=== PATIENT | female | born 1995 | race Caucasian/White ===

== ENCOUNTER → 2016-05-09 | Outpatient (CLI) | payer BC ==
[~2016-05-09] MED LIST: GADAVIST IV PRN; LEVOTAB6 PO; MULT-506 PO; NORT25CA PO; RBX500 PO; Vitamin D PO; ZOLMITRIPTAN PO; loratadine PO
--- NOTE | 2016-05-09 18:08 | DIAGNOSTIC IMAGING REPORT ---
MRI OF THE BRAIN WITH AND WITHOUT CONTRAST MULTIPLE SCLEROSIS PROTOCOL CLINICAL HISTORY: Left frontal lobe mass. Strong family history of multiple sclerosis. COMPARISON STUDY: MRI of the brain January 25, 2015 and October 15, 2015. TECHNIQUE: Utilizing a 1.5 Estephania magnet, multiplanar, multi echo imaging of the brain was performed pre and postcontrast administration according to the multiple sclerosis protocol. Injection of 5.5 cc of Gadavist IV was uneventful. FINDINGS: There are no areas of restricted diffusion. No acute intracranial hemorrhage or midline shift is present. Ventricular system is normal. Basilar cisterns are patent. There are no extra-axial collections. Flow-voids for the major intracranial vessels are present. Note is made of a 3 x 1.6 x 2.5 cm subcortical white matter T2 hyperintense focus within the anterior left frontal lobe which is unchanged since MRI of January 25, 2015. This demonstrates no enhancement. Mild associated cortical thickening is noted. No additional areas of signal abnormality are identified within the brain. There is no abnormal enhancement within the brain. Calvarial signal is maintained. Orbits and sinuses are unremarkable. IMPRESSION: 1. No change in the left frontal lobe 3 cm subcortical white matter T2 hyperintense focus with associated cortical thickening since MRI of January 25, 2015. 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 However, a low-grade neoplasm would be difficult to exclude and continued imaging follow-up to ensure stability is recommended. The appearance is not typical for demyelinating process. 2. Otherwise, normal MRI of the brain. Electronically signed by: Clark Kang M.D. 05/09/2016 6:06 PM Dictated Date/Time: 05/09/2016 5:37 PM
== END | disposition home or self-care (01) ==
LOC: C.MRI 16:40
PROVIDERS: ATTEND Hospitalist
DX: G93.9 Disorder of brain, unspecified (principal)

== ENCOUNTER → 2017-05-01 | Outpatient (CLI) | payer BC ==
[~2017-05-01] MED LIST changes: -GADAVIST IV PRN
== END | disposition home or self-care (01) ==
LOC: C.LABSPEC 17:40
PROVIDERS: ATTEND Physician Assistant
DX: J35.1 Hypertrophy of tonsils (principal)

== ENCOUNTER → 2017-05-29 | Outpatient (CLI) | payer BC | END | disposition home or self-care (01) | LOC: C.LABPBG 09:18 | PROVIDERS: ATTEND Physician Assistant | DX: J35.1 Hypertrophy of tonsils (principal); R53.83 Other fatigue ==

== ENCOUNTER 2017-06-08 15:16 | Emergency (ER) | payer BC ==
[~2017-06-08] VITALS: Ht 165.1 cm; Wt 57.3 kg
[2017-06-08 15:36] VITALS: TEMP 37.1; Ht 165.1 cm; Wt 57.3 kg
[2017-06-08] MEDS ORDERED: LORAZEPAM 2 MG/ML 1 ML VIAL IV ONE (17:45)
[2017-06-08] MEDS ORDERED: SODIUM CHLORIDE 0.9% 1000ML 1,000 ML IV ONE ×2 (17:45→18:45)
[2017-06-08 17:57] LABS: BASO % 0.1 %; BASO ABS # 0.01 K/uL (0-0.2); EOS % 0.1 %; EOS ABS # 0.01 K/uL (0-0.5); HEMATOCRIT 40.3 % (37-47); HEMOGLOBIN 13.8 g/dL (12.0-16.0); IG# 0.01 K/uL (0.00-0.02); LYMPH % 29.4 %; MEAN CELL VOLUME 90.2 fL (80-100); MEAN CORPUSCULAR HEMOGLOBIN 30.9 pg (25-34); MEAN CORPUSCULAR HGB CONC 34.2 g/dl (32-36); MEAN PLATELET VOLUME 8.9 fL (7.4-10.4); MONO % 11.5 %; MONO ABS # 0.78 K/uL (0.11-0.59); NEUT % 58.8 %; PLATELET COUNT 280 K/uL (130-400); RED CELL DISTRIBUTION WIDTH CV 12.9 % (11.5-14.5); RED CELL DISTRIBUTION WIDTH SD 42.4 fL (36.4-46.3); WHITE BLOOD COUNT 6.81 K/uL (4.8-10.8)
[2017-06-08 18:05] LABS: INR 1.1 (0.9-1.1); PTT PATIENT 26.4 SECONDS (21.0-31.0)
[2017-06-08 18:20] LABS: ALBUMIN 4.2 gm/dl (3.4-5.0); ALT/SGPT 27 U/L (12-78); BLOOD UREA NITROGEN 8 mg/dl (7-18); CALCIUM 9.1 mg/dl (8.5-10.1); CARBON DIOXIDE 26 mmol/L (21-32); CREATININE 0.79 mg/dl (0.60-1.20); GLUCOSE 75 mg/dl (70-99); LIPASE 97 U/L (73-393); POTASSIUM 3.4 mmol/L (3.5-5.1); SODIUM 138 mmol/L (136-145)
[2017-06-08 18:31] LABS: ALKALINE PHOSPHATASE 44 U/L (45-117); AST/SGOT 12 U/L (15-37); CKMB < 0.5 ng/ml (0.5-3.6); TOTAL PROTEIN 8.3 gm/dl (6.4-8.2)
[2017-06-08 18:39] LABS: MONOSPOT NEG (NEG)
[2017-06-08] MEDS ORDERED: GADAVIST IV PRN (19:15)
--- NOTE | 2017-06-08 19:20 | DIAGNOSTIC IMAGING REPORT ---
MRI OF THE BRAIN WITHOUT AND WITH IV CONTRAST CLINICAL HISTORY: Weakness, fatigue. History of left frontal lobe mass. COMPARISON STUDY: 05/09/2016 , January 2015 TECHNIQUE: MRI of the brain was performed from the vertex to the skull base utilizing various T1 and T2 weighted sequences. Following the IV administration of 5.5 mL of Gadavist contrast, additional enhanced images were obtained. FINDINGS: Sagittal T1, axial diffusion, proton density and T2 weighted axial, coronal FLAIR, and pre and post axial T1-weighted images were acquired. These were supplemented with post gadolinium coronal T1 weighted images. There is a stable 2.6 cm left frontal subcortical focus of increased T2 signal. Again there is no associated enhancement. There is equivocal associated mild cortical thickening. 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 A low-grade neoplasm can again not be excluded with certainty. Axial diffusion-weighted images reveal no evidence of acute or subacute infarction. There is no evidence of ventricular dilatation. Proton density T2-weighted and FLAIR images reveal the left frontal lesion has previous described. There are no additional foci of abnormal signal. There are no abnormal flow voids. There is no evidence of pathologic enhancement. IMPRESSION: 1. No acute intracranial findings 2. No evidence of acute or subacute infarction 3. Stable 2.6 cm left frontal subcortical white matter lesion with equivocal associated cortical thickening. There is no pathological enhancement. 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 Electronically signed by: Johnny Stewart M.D. 06/08/2017 7:19 PM Dictated Date/Time: 06/08/2017 7:12 PM
[2017-06-08] MEDS ORDERED: CEFTRIAXONE SOD INJ 1 GM ADDVIAL IV STA (19:23)
[2017-06-08] MEDS ORDERED: CEFD300C2 PO (20:13)
[2017-06-08 20:32] VITALS: BP 119/70; PULSE 83; O2SAT 97
--- NOTE | 2017-06-08 20:42 | EMERGENCY ROOM VISIT NOTE ---
History First contact with patient: 17:02 Chief Complaint: ILLNESS Stated Complaint: HAD STREP THROAT, STOMACH ACHE, HEADACHE, FEVER History of Present Illness The patient is a 21 year old female who presents to the Emergency Room with multiple complaints including sore throat, fevers, chills, headache, stomachaches, body aches, and difficulty sleeping. The patient states her symptoms have been off and on for the past 2 or 3 months, and she has been diagnosed with strep pharyngitis twice in that interval. She is allergic to penicillins and was treated the first time with an unknown antibiotic. The patient tested positive again a second time, but did not merchandise pickup/receiving associate the antibiotic from the pharmacy because she believes it was a penicillin and she is allergic to penicillins. The patient states that her symptoms have worsened over the past 3 or 4 days, prompting her presentation today. She does report a history of a stable brain mass that she follows with her she had before. This was last imaged about 1 year ago. The patient denies chance of as she is on control. She rates her overall discomfort at 8/10. She does not report numbness or paresthesias. Review of Systems More than 10 systems were reviewed and otherwise negative with the exception of history of present illness. Past Medical/Surgical History No pertinent surgical history. Reported history of benign brain mass. Family History No pertinent family history Social History Smoking Status: Never Smoker Marital Status: Occupation Status: employed Current/Historical Medications Scheduled Cefdinir (Omnicef), 300 MG PO Q12H Levonorgestrel-Ethinyl Estradi (Seasonique), 1 TAB PO DAILY Physical Exam Vital Signs Date Time Temp Pulse Resp B/P (MAP) Pulse Ox O2 Delivery O2 Flow Rate FiO2 06/08/17 20:32 83 16 119/70 97 06/08/17 19:54 85 16 119/65 99 Room Air 06/08/17 15:36 37.1 122 18 137/83 98 Room Air Physical Exam VITALS: Vitals are noted on the nurse's note and reviewed by myself. Vital signs stable. GENERAL: Well-developed, well-nourished, white female, who is in no acute distress and resting comfortably. Patient is cooperative with the examination. HEAD: Normocephalic atraumatic. EARS: External ear normal. External auditory canals clear, tympanic membranes pearly jackson without erythema or effusion bilaterally. EYES: Pupils equal round and reactive to light and accommodation. Conjunctivae without injection, sclerae without icterus. Extraocular movements intact. NOSE: Patent, turbinates without inflammation or discharge. MOUTH: Mucous membranes moist. Tonsils are 3+ enlarged but non-exudative or erythematous. Pharynx without erythema, blood, or exudate. Uvula midline. Airway patent. NECK: Supple without nuchal rigidity. No lymphadenopathy. No thyromegaly. Cervical spine is nontender. HEART: Regular rate and rhythm without murmurs gallops or rubs. LUNGS: Clear to auscultation bilaterally without wheezes, rales or rhonchi. No retractions or accessory muscle use. ABDOMEN: Positive normal bowel sounds x 4. Soft, nontender, without masses or organomegaly. No guarding or rebound tenderness. MUSCULOSKELETAL: No muscle atrophy, erythema, or edema noted. Full range of motion in all extremities. No tenderness to palpation. Normal gait. Strength 5/5 throughout. NEURO: Patient was alert and oriented to person place and time. CN II through XII grossly intact. No focal neurological deficits. Deep tendon reflexes 2+ throughout. Medical Decision & Procedures ER Provider Diagnostic Interpretation: MRI OF THE BRAIN WITHOUT AND WITH IV CONTRAST CLINICAL HISTORY: Weakness, fatigue. History of left frontal lobe mass. COMPARISON STUDY: 05/09/2016 , January 2015 TECHNIQUE: MRI of the brain was performed from the vertex to the skull base utilizing various T1 and T2 weighted sequences. Following the IV administration of 5.5 mL of Gadavist contrast, additional enhanced images were obtained. FINDINGS: Sagittal T1, axial diffusion, proton density and T2 weighted axial, coronal FLAIR, and pre and post axial T1-weighted images were acquired. These were supplemented with post gadolinium coronal T1 weighted images. There is a stable 2.6 cm left frontal subcortical focus of increased T2 signal. Again there is no associated enhancement. There is equivocal associated mild cortical thickening. 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 A low-grade neoplasm can again not be excluded with certainty. Axial diffusion-weighted images reveal no evidence of acute or subacute infarction. There is no evidence of ventricular dilatation. Proton density T2-weighted and FLAIR images reveal the left frontal lesion has previous described. There are no additional foci of abnormal signal. There are no abnormal flow voids. There is no evidence of pathologic enhancement. IMPRESSION: 1. No acute intracranial findings 2. No evidence of acute or subacute infarction 3. Stable 2.6 cm left frontal subcortical white matter lesion with equivocal associated cortical thickening. There is no pathological enhancement. 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 Laboratory Results 06/08/17 17:45 Red Blood Count 4.47, Mean Corpuscular Volume 90.2, Mean Corpuscular Hemoglobin 30.9, Mean Corpuscular Hemoglobin Concent 34.2, Mean Platelet Volume 8.9, Neutrophils (%) (Auto) 58.8, Lymphocytes (%) (Auto) 29.4, Monocytes (%) (Auto) 11.5, Eosinophils (%) (Auto) 0.1, Basophils (%) (Auto) 0.1, Neutrophils # (Auto ) 4.00, Lymphocytes # (Auto) 2.00, Monocytes # (Auto) 0.78, Eosinophils # (Auto ) 0.01, Basophils # (Auto) 0.01 06/08/17 17:45 Test 06/08/17 17:45 06/08/17 17:55 White Blood Count 6.81 K/uL (4.8-10.8) Red Blood Count 4.47 M/uL (4.2-5.4) Hemoglobin 13.8 g/dL (12.0-16.0) Hematocrit 40.3 % (37-47) Mean Corpuscular Volume 90.2 fL (80-100) Mean Corpuscular Hemoglobin 30.9 pg (25-34) Mean Corpuscular Hemoglobin Concent 34.2 g/dl (32-36) Platelet Count 280 K/uL (130-400) Mean Platelet Volume 8.9 fL (7.4-10.4) Neutrophils (%) (Auto) 58.8 % Lymphocytes (%) (Auto) 29.4 % Monocytes (%) (Auto) 11.5 % Eosinophils (%) (Auto) 0.1 % Basophils (%) (Auto) 0.1 % Neutrophils # (Auto) 4.00 K/uL (1.4-6.5) Lymphocytes # (Auto) 2.00 K/uL (1.2-3.4) Monocytes # (Auto) 0.78 K/uL (0.11-0.59) Eosinophils # (Auto) 0.01 K/uL (0-0.5) Basophils # (Auto) 0.01 K/uL (0-0.2) RDW Standard Deviation 42.4 fL (36.4-46.3) RDW Coefficient of Variation 12.9 % (11.5-14.5) Immature Granulocyte % (Auto) 0.1 % Immature Granulocyte # (Auto) 0.01 K/uL (0.00-0.02) Prothrombin Time 11.1 SECONDS (9.0-12.0) Prothromb Time International Ratio 1.1 (0.9-1.1) Activated Partial Thromboplast Time 26.4 SECONDS (21.0-31.0) Partial Thromboplastin Ratio 1.0 Anion Gap 7.0 mmol/L (3-11) Est Creatinine Clear Calc Drug Dose 100.5 ml/min Estimated GFR () 123.2 Estimated GFR (Non- 106.3 BUN/Creatinine Ratio 9.7 (10-20) Calcium Level 9.1 mg/dl (8.5-10.1) Magnesium Level 2.1 mg/dl (1.8-2.4) Total Bilirubin 0.7 mg/dl (0.2-1) Aspartate Amino Transf (AST/SGOT) 12 U/L (15-37) Alanine Aminotransferase (ALT/SGPT) 27 U/L (12-78) Alkaline Phosphatase 44 U/L (45-117) Total Creatine Kinase 45 U/L (26-192) Creatine Kinase MB < 0.5 ng/ml (0.5-3.6) Creatine Kinase MB Ratio (0-3.0) Total Protein 8.3 gm/dl (6.4-8.2) Albumin 4.2 gm/dl (3.4-5.0) Globulin 4.1 gm/dl (2.5-4.0) Albumin/Globulin Ratio 1.0 (0.9-2) Lipase 97 U/L (73-393) Thyroid Stimulating Hormone (TSH) 2.240 uIu/ml (0.300-4.500) Lyme Disease IgG Antibody NEG (NEG) Lyme Disease IgM Antibody NEG (NEG) Monoscreen NEG (NEG) Anti-Streptolysin O Antibody Screen POS IU/ml (<200 IU) Anti-Streptolysin O Antibody Titer 200 IU/ml (<200 IU) Urine Color DK YELLOW Urine Appearance CLOUDY (CLEAR) Urine pH 6.0 (4.5-7.5) Urine Specific [place] 1.031 (1.000-1.030) Urine Protein TRACE (NEG) Urine Glucose (UA) NEG (NEG) Urine Ketones 3+ (NEG) Urine Occult Blood NEG (NEG) Urine Nitrite NEG (NEG) Urine Bilirubin NEG (NEG) Urine Urobilinogen NEG (NEG) Urine Leukocyte Esterase SMALL (NEG) Urine WBC (Auto) 10-30 /hpf (0-5) Urine RBC (Auto) 0-4 /hpf (0-4) Urine Hyaline Casts (Auto) 10-30 /lpf (0-5) Urine Epithelial Cells (Auto) >30 /lpf (0-5) Urine Bacteria (Auto) NEG (NEG) Urine Test NEG (NEG) Medications Administered Medications (Trade) Dose Ordered Sig/Grazyna Route Start Time Stop Time Status Last Admin Dose Admin Sodium Chloride 1,000 ml @ 999 mls/hr Q1H1M ONCE IV 06/08/17 17:45 06/08/17 18:45 DC 06/08/17 17:50 999 MLS/HR Lorazepam (Ativan Inj) 1 mg ONE ONCE IV 06/08/17 17:45 06/08/17 17:46 DC 06/08/17 17:53 1 MG Sodium Chloride 1,000 ml @ 999 mls/hr Q1H1M ONCE IV 06/08/17 18:45 06/08/17 19:45 DC 06/08/17 19:52 999 MLS/HR Ceftriaxone Sodium (Rocephin Inj) 1 gm NOW STAT IV 06/08/17 19:23 06/08/17 19:24 DC 06/08/17 19:52 1 GM ED Course Physical exam and history were performed. Nursing notes, EMR, and Medication List were personally reviewed. Patient appears to have several symptoms bring her to the ER today. The most concerning are that she has had a fever with persistent sore throat symptoms. She is also complaining of intermittent headache symptoms and has a history of a brain mass. The patient appears well on examination without obvious neurologic deficit. Her tonsils are enlarged but not erythematous, and her airway is patent. IV access was established and labs were obtained. The patient was hydrated with normal saline. I discussed the case with my attending physician, and because of the patient's history and symptoms we did elect to perform an MRI of the brain. The patient's blood work is as above and was reviewed. She does not have a significantly elevated white blood cell count, gross anemia, bandemia, or significant electrolyte imbalance. Lipase and transaminases are not diagnostic. Lyme and mono were both negative. TSH shows euthyroid state. The patient is not . She may be slightly dehydrated based on her urine and was given an additional liter of saline through the IV. Her ASO titer is elevated. MRI reading is as above and was reviewed by myself and radiology. She does have a white matter lesion, which appears stable, and without other additional findings this is felt to be noncontributory to her symptoms today. I had a lengthy discussion with the patient regarding her findings. Because she has a positive ASO titer I will give her a dose of Rocephin here in the department. Because of her penicillin allergy I will give her a course of Omnicef, which should clear any remaining strep exposure. This is felt to be the likely cause of her symptoms, and should help her improve over the next few days. I did request the patient follow with her primary care physician in the next few days for recheck. She was certainly invited back to the ER with any new, worsening, or concerning symptoms. The patient was pleased with this and was discharged home under the care of her male jewelry coater who is acting as a taxicab driver. The chart was completed utilizing [employer] Voice Recognition Software. Grammatical errors, random word insertions, pronoun errors, and incomplete sentences are an occasional consequence of this system due to software limitations, ambient noise, and hardware issues. Any formal questions or concerns about the content, text, or information contained within the body of this dictation should be directly addressed to the provider for clarification. . Medical Decision Differential diagnosis: Etiologies such as cancer, mono, viral syndrome, tonsillitis, streptococcal pharyngitis, mononucleosis, peritonsillar abscess, retropharyngeal abscess, otitis, pneumonia, influenza, as well as others were entertained. Impression Primary Impression: Sore throat Additional Impression: Elevated anti-streptolysin O antibodies Departure Information Dispostion Home / Self-Care Condition GOOD Prescriptions Cefdinir (OMNICEF) 300 Mg Cap 300 MG PO Q12H for 10 Days, #20 CAP Prov: Andrea Cadena PA-C 06/08/17 Forms HOME CARE DOCUMENTATION FORM, IMPORTANT VISIT INFORMATION Patient Instructions My [facility] Additional Instructions You were seen and evaluated today on an emergency basis only. This is not a substitute for, or an effort to provide, complete comprehensive medical care. It is not possible to recognize and treat all injuries or illnesses in a single emergency department visit. For this reason it is recommended that you followup with your primary care physician in the next 1-2 weeks for recheck. For baseline pain relief you may alternate ibuprofen and acetaminophen every 4 hours for pain control. Take 600 mg ibuprofen (Advil) and then 4 hours later take 1000 mg acetaminophen (Tylenol). Do not take more than 3000 mg acetaminophen in a single day. Take Omnicef twice daily for the next 10 days. You are welcome to return to the emergency department anytime with new, worsening, or concerning symptoms. Problem Qualifiers
--- NOTE | 2017-06-10 16:45 | Pharmacy Progress Note ---
ED Pharmacist Culture FollowUp Date of Service: Jun 10, 2017. Attempted to contact patient to inform her of result but was forced to leave a voicemail. Per Andrea Cadena PA-C may call in macrobid 100mg BID X 7 days and stop cefdinir.
== END 2017-06-08 20:33 | disposition home or self-care (01) ==
LOC: C.EDB 15:18 → C.EDC 20:33
DX: J02.9 Acute pharyngitis, unspecified (principal); R76.0 Raised antibody titer; Z79.3 Long term (current) use of hormonal contraceptives; Z86.011 Personal history of benign neoplasm of the brain; Z88.0 Allergy status to penicillin

== ENCOUNTER → 2017-07-14 | Outpatient (CLI) | payer BC ==
[~2017-07-14] MED LIST changes: -MULT-506 PO; -NORT25CA PO; -RBX500 PO; -Vitamin D PO; -ZOLMITRIPTAN PO; -loratadine PO
[2017-07-14 12:55] LABS: BASO % 0.4 %; BASO ABS # 0.02 K/uL (0-0.2); EOS % 1.4 %; EOS ABS # 0.07 K/uL (0-0.5); HEMATOCRIT 40.1 % (37-47); HEMOGLOBIN 13.5 g/dL (12.0-16.0); IG# 0.01 K/uL (0.00-0.02); LYMPH % 33.7 %; LYMPH ABS # 1.69 K/uL (1.2-3.4); MEAN CELL VOLUME 90.9 fL (80-100); MEAN CORPUSCULAR HEMOGLOBIN 30.6 pg (25-34); MEAN CORPUSCULAR HGB CONC 33.7 g/dl (32-36); MEAN PLATELET VOLUME 9.3 fL (7.4-10.4); MONO % 7.4 %; MONO ABS # 0.37 K/uL (0.11-0.59); NEUT % 56.9 %; NEUT ABS # 2.85 K/uL (1.4-6.5); PLATELET COUNT 259 K/uL (130-400); RED CELL DISTRIBUTION WIDTH CV 13.1 % (11.5-14.5); RED CELL DISTRIBUTION WIDTH SD 43.5 fL (36.4-46.3); WHITE BLOOD COUNT 5.01 K/uL (4.8-10.8)
[2017-07-14 13:34] LABS: BLOOD UREA NITROGEN 10 mg/dl (7-18); CALCIUM 8.9 mg/dl (8.5-10.1); CARBON DIOXIDE 26 mmol/L (21-32); CREATININE 0.81 mg/dl (0.60-1.20); GLUCOSE 85 mg/dl (70-99); POTASSIUM 3.6 mmol/L (3.5-5.1); SODIUM 139 mmol/L (136-145)
== END | disposition home or self-care (01) ==
LOC: C.LABPBG 09:01
PROVIDERS: ATTEND Family Medicine
DX: J02.9 Acute pharyngitis, unspecified (principal); R53.83 Other fatigue

== ENCOUNTER 2017-07-25 19:01 | Emergency (ER) | payer BC ==
[~2017-07-25] VITALS: Ht 165.1 cm; Wt 55.2 kg
[2017-07-25 19:07] VITALS: TEMP 36.7; Ht 165.1 cm; Wt 55.2 kg
[2017-07-25] MEDS ORDERED: ONDANSETRON INJ 2 MG/ML 2 ML VIAL IV STA (19:17)
[2017-07-25] MEDS ORDERED: KETOROLAC TROMETHAMINE 30 MG/ML VIAL IV STA (19:17)
[2017-07-25] MEDS ORDERED: METHYLPREDNISOLONE 125 MG VIAL IV STA (19:17)
[2017-07-25] MEDS ORDERED: SODIUM CHLORIDE 0.9% 500ML 500 ML IV STA (19:17)
--- NOTE | 2017-07-25 19:24 | EMERGENCY ROOM VISIT NOTE ---
History Report prepared by Catia: Caroline Mehta Under the Supervision of: Dr. Chidi Guzman M.D. First contact with patient: 19:08 Chief Complaint: SORETHROAT Stated Complaint: SWOLLEN THROAT,PASSING OUT,DEHYDRATED History of Present Illness The patient is a 21 year old white female with a past medical history of stomach problems, a benign brain tumor, and strep throat who presents to the ED with a cc of a worsening sore throat beginning last night. Positive dry cough, dehydration, lack of appetite, syncope. Negative vomiting or dental pain. She states she has had recurring strep throat since February 16 and has had a few rounds of antibiotics and steroids. The patient notes she feels like her throat is closing again. Her LNMP was 2 months ago but she notes she only gets it every 2 months. Source of History: patient Onset: last night Position: throat Quality: other (sore and "like her throat is closing") Timing: worsening Associated Symptoms: + cough (dry), No vomiting Note: Positive dehydration, lack of appetite, syncope. Negative dental pain Review of Systems See HPI for pertinent positives and negatives. A total of ten systems were reviewed and were otherwise negative. Past Medical & Surgical Medical Problems: (1) Stomach problems (2) Strep throat Family History Cancer Diabetes mellitus Heart disease High blood pressure Social History Smoking Status: Never Smoker Smokeless Tobacco Use: No Alcohol Use: occasionally Marital Status: Occupation Status: employed Current/Historical Medications Scheduled Levonorgestrel-Ethinyl Estradi (Seasonique), 1 TAB PO DAILY Prednisone (Prednisone), 50 MG PO DAILY Scheduled PRN Ondansetron Hcl (Zofran), 4 MG PO Q8H PRN for Nausea Allergies Coded Allergies: Metoclopramide (Verified Allergy, Unknown, compulsive shakes, 04/04/16) Uncoded Allergies: PENICILLIN (Allergy, Unknown, hives, 04/04/16) Physical Exam Vital Signs Date Time Temp Pulse Resp B/P (MAP) Pulse Ox O2 Delivery O2 Flow Rate FiO2 07/25/17 19:07 36.7 104 20 136/82 96 Room Air Physical Exam GENERAL: Awake, alert, well-appearing, NAD HENT: Normocephalic, atraumatic. Mildly enlarged bilateral tonsils. No tonsillar or uvular deviation. Non-stridulous over the anterior neck. No signs of meningismus EYES: Normal conjunctiva. Sclera non-icteric. PERRL. No anisocoria. NECK: Supple. No nuchal rigidity. FROM. RESPIRATORY: CTAB, no rhonchi, wheezing, crackles CARDIAC: RRR, no MRG ABDOMEN: Soft, NTND, BS+ MSK: No chest wall TTP, no LE edema NEURO: GCS 15, CN 2-12 intact, moves all 4s on command SKIN: No rash or jaundice noted. Medical Decision & Procedures Laboratory Results Test 07/25/17 19:50 Urine Test NEG (NEG) Laboratory results reviewed by me Medications Administered Medications (Trade) Dose Ordered Sig/Grazyna Route Start Time Stop Time Status Last Admin Dose Admin Ondansetron HCl (Zofran Inj) 4 mg NOW STAT IV 07/25/17 19:17 07/25/17 19:20 DC 07/25/17 19:47 4 MG Ketorolac Tromethamine (Toradol Inj) 30 mg NOW STAT IV 07/25/17 19:17 07/25/17 19:20 DC 07/25/17 19:46 30 MG Methylprednisolone Sodium Succinate (Solu-Medrol IV) 125 mg NOW STAT IV 07/25/17 19:17 07/25/17 19:20 DC 07/25/17 19:46 125 MG Sodium Chloride 500 ml @ 999 mls/hr Q31M STAT IV 07/25/17 19:17 07/25/17 19:47 DC 07/25/17 19:45 999 MLS/HR ED Course 1911: The patient was evaluated in room C10. A complete history and physical exam was performed. 1916: Ordered Solu-Medrol IV 125 mg IV, Toradol Inj 30 mg IV, Zofran Inj 4 mg IV 2016: I reevaluated the patient. She is feeling better at this time. Discussed results and discharge instructions: She verbalized understanding and agreement. The patient is ready for discharge. Medical Decision The patient is a 21 year old white female with a past medical history of a stomach problems, benign brain tumor, and strep throat who presents to the ED with a cc of a worsening sore throat beginning last night. Positive dry cough, dehydration, lack of appetite, syncope. Negative vomiting or dental pain. Prior records/ancillary studies reviewed. Triage Nursing notes reviewed. The patient's history was concerning for a sore throat. Differential diagnosis: Etiologies such as viral syndrome, tonsillitis, streptococcal pharyngitis, mononucleosis, peritonsillar abscess, retropharyngeal abscess, otitis, pneumonia , influenza, as well as others were entertained. Patient was seen and evaluated the bedside. Patient does have a prior history of recurrent strep throat. Patient recently completed a course of antibiotics. Patient is complaining of feeling like her throat is getting tight. Patient also states that she feels like she may be dehydrated. Patient denies any procedures in the abdomen. Patient does get her periods every 3 months. Patient denies any vaginal bleeding. Patient denies any recent travel. The patient did have recent antibiotic use. Patient denies any recent steroid use. On exam patient does have bilaterally enlarged tonsils without any exudates or erythema. Patient's neck exam does not reveal any adenopathy and she is not stridulous. Clear to auscultation bilaterally. Patient did have a urine test completed and the patient was given IV fluids as well as some medications for symptom control. Patient is no signs of meningismus and no evidence concerning airway edema or tonsillar or uvular deviation concerning for [employer]. Do not believe that the patient requires any blood work or imaging at this time. Upon reassessment the patient was feeling mildly improved. The patient was able tolerate p.o. Patient's urine test is negative. Patient was deemed suitable for outpatient follow-up treatment at this time. Patient was given strict follow-up, discharge, and return precautions. All questions were answered. Patient was deemed suitable for outpatient follow-up at this time. Patient agreed with the plan of care and was safely discharged home. Medication Reconcilliation Current Medication List: was personally reviewed by me Blood Pressure Screening Patient's blood pressure: Normal blood pressure Blood pressure disposition: Did not require urgent referral Impression Primary Impression: Sore throat Scribe Attestation The scribe's documentation has been prepared under my direction and personally reviewed by me in its entirety. I confirm that the note above accurately reflects all work, treatment, procedures, and medical decision making performed by me. Departure Information Dispostion Home / Self-Care Prescriptions Ondansetron Hcl (ZOFRAN) 4 Mg Tab 4 MG PO Q8H Y for Nausea, #12 TAB Prov: Chidi Guzman M.D. 07/25/17 Prednisone (PREDNISONE) 50 Mg Tab 50 MG PO DAILY for 4 Days, #4 TAB Prov: Chidi Guzman M.D. 07/25/17 Referrals Jessie Morales DO (PCP) Forms HOME CARE DOCUMENTATION FORM, IMPORTANT VISIT INFORMATION Patient Instructions My [facility], Sore Throat - [facility], Sore Throats Self Care Additional Instructions Please return to the emergency department if you have worsening or recurrent symptoms not amenable to at-home treatment. Please call for a follow-up appointment with her primary care physician. Please take your medications as prescribed. If you have other concerns and/or complaints please feel free to also call your primary care physician's office or return the ED for further evaluation, management, and treatment. You may take 800 mg Ibuprofen every 6 hours as needed for pain/fever with food unless told by your physician not to take NSAIDs. You may take tylenol 1000 mg every 6 hours as needed for pain/fever unless told by your physician to not take it or have liver problems. You may take motrin and tylenol separately or at the same time. Please take your steroids preferably in the morning and with food as they may cause some upset stomach and cause you to be very awake and alert. Please consider a bland diet. May consider Pepcid 20 mg twice daily to help with GI upset. Avoid things like spicy or citrus foods. If you can only drink liquids and not eat that is okay as long as you are able to tolerate by mouth liquids. Please follow-up with your ear nose and throat physician. Please also consider tea with honey and lemon. You may also consider salt water gargles for sore throat. Please also continue to practice good oral hygiene. You may consider Afrin or saline nasal sprays. Use the Afrin for no more than 2 days at a time. You may also consider Vicks VapoRub, hot showers, or a humidifier. Take your medications as prescribed. You have been examined and treated today on an emergency basis only. This is not a substitute for, or an effort to provide, complete comprehensive medical care. It is impossible to recognize and treat all injuries or illnesses in a single emergency department visit. It is therefore important that you follow up closely with [facility], your PCP, and/or your specialist(s). Call as soon as possible for an appointment. Thank you for your time and consideration. I look forward to speaking with you again soon. Please don't hesitate to call us if you have any questions.
[2017-07-25] MEDS ORDERED: PRED50TA PO (20:23)
[2017-07-25] MEDS ORDERED: ONDA4TAB46 PO (20:23)
[2017-07-25] MEDS ORDERED: ONDANSETRON HOME PACK 4MG OD TAB PO ONE (20:30)
[2017-07-25 20:44] VITALS: BP 126/70; PULSE 98; O2SAT 96
== END 2017-07-25 20:45 | disposition home or self-care (01) ==
LOC: C.EDB 19:02 → C.EDC 20:45
DX: J02.9 Acute pharyngitis, unspecified (principal); Z79.3 Long term (current) use of hormonal contraceptives; Z79.52 Long term (current) use of systemic steroids; Z88.0 Allergy status to penicillin; Z88.8 Allergy status to other drugs, medicaments and biological substances

== ENCOUNTER 2024-12-02 05:33 | Observation (INO) ==
--- NOTE | 2024-12-02 06:30 | Emergency Department Note ---
Impression & Plan Dizziness, Vomiting, Right ear pain, Middle ear effusion, Failure of outpatient treatment ED Provider Note NAME: ZENON RAMOS AGE: 28 SEX: F : 1995 ARRIVES VIA: Walk-In INFORMANT: [Patient] ED PROVIDER(S): [Pradip Morris MD] CHIEF COMPLAINT: Dizziness HISTORY OF PRESENT ILLNESS: The patient is a 28-year-old female who states this is the third visit in 3 days. During her last 2 visits, she has had laboratory work, she has had a brain MRI. Really nothing was found to explain the symptoms although, with the last visit, she was started on antibiotics for a potential UTI. The patient states that 3 weeks ago, she began having right ear pain. She went to her doctor's office and was given antibiotics, Zithromax. She went back as she was feeling no better and was given a different antibiotic, clindamycin, and a steroid. She then came to our ER the first time with complaints of a visual change and ongoing symptoms. Her brain MRI showed stable findings. Her eye pressures were somewhat high and she was discharged to see her eye technician. It was determined that the elevation in the eye pressures was secondary to her prednisone. The patient was here yesterday and was told that she may have a UTI, antibiotics were prescribed. She has not yet picked up this prescription. The patient is back today complaining of continued ear pain, dizziness, nausea vomiting, fever and chills. She feels achy. She states she is not functioning at home. PMHx/PSHx/Social Hx: See Below PHYSICAL EXAM: GENERAL: Patient is in no acute distress. HEENT: No acute trauma, normocephalic atraumatic, mucous membranes moist, no nasal congestion. No TM erythema although, she has fluid behind both drums. NECK: No stridor, no adenopathy, no meningismus, trachea is midline. LUNGS: Clear to auscultation bilaterally, no wheeze, no rhonchi, breath sounds equal. HEART: Mildly tachycardic, regular rhythm, no murmurs. ABDOMEN: Soft, nontender, no peritonitis. EXTREMITIES: No cyanosis, full range of motion of all the joints without pain or difficulty. NEUROLOGIC: Oriented x 3, no acute motor or sensory deficits, no focal weakness. No speech slur. SKIN: No jaundice, no diaphoresis. DIFFERENTIAL DIAGNOSIS: Vertigo, viral illness, dehydration, electrolyte imbalance, tickborne illness, among others. EMERGENCY DEPARTMENT PROCEDURES: MEDICAL DECISION MAKING: There is no leukocytosis or concerning anemia. There is a normal platelet count. No bandemia. No electrolyte abnormality or renal failure. No concerning liver enzyme elevation. The patient appears to be in a euthyroid state. testing was negative. Urinalysis showed presumed contamination. Babesia and anaplasmosis smears were negative. Lyme disease testing is pending. Respiratory BioFire was completely negative when run yesterday. On exam, there was a fluid behind both eardrums, no focal neurologic findings. She was not febrile or toxic. Patient received IV saline, IV Zofran, IV Phenergan. She was given IV Benadryl. She received IV Toradol. The patient is having ongoing symptoms despite numerous visits to the ER and different ways to try and manage her symptoms outpatient. She is persistently vomiting. At this point, I do think a hospital stay, hydration, monitoring, further workup is warranted. The cause for her complaints is unclear but certainly may be due to the middle ear fluid seen on exam. She certainly could be suffering from a bad case of vertigo. I did speak with the patient at length. The on-call hospitalist was consulted. Prior/Outside records/notes reviewed: Previous ED visit notes describing her presentation, findings and outpatient plan. ECG per my interpretation: Indication was dizziness. The ECG shows a normal sinus rhythm with some sinus arrhythmia. There is no ST elevation, no PVCs. The QTc is 420. Continuous Cardiac Monitoring per my interpretation: An order was placed for continuous cardiac monitoring. The monitor shows a rate of 88 with normal sinus rhythm. Imaging/x-ray results per my interpretation: Chronic Medical/Social conditions affecting care: None Care/Management discussed with: Case management, the on-call hospitalist. Level of care consideration(s): After review of the information above and other included data: --I believe the patient requires escalation of care to admission DISPOSITION: Admission Past Med/Surg History Problem List Failure of outpatient treatment (Acute) Middle ear effusion (Acute) Right ear pain (Acute) Vomiting (Acute) Dizziness (Acute) Fibroid (Acute) Abdominal pain (Acute) Lesion of frontal lobe of brain (Acute) Visual disturbance (Acute) Lesion of frontal lobe of brain Left Abnormal finding on MRI of brain Depression Cerebellar tonsillar ectopia Allergic rhinitis Anxiety Classic migraine with aura Vitamin D deficiency Medical History Lymphedema Surgical History S/P endometrial ablation (02/2023) Status post tubal ligation 10/2021 Status post section 10/2021 S/P tube myringotomy (~05/2015) w/ removal in May 2015 H/O wisdom tooth extraction Family History Father Family history of alcohol abuse Environmental allergies Drug abuse Hypertension Mother , August 2024 Anxiety Environmental allergies Family history of depression Obesity Thyroid trouble Endometrial cancer Sister Anxiety Family history of depression Endometriosis Obesity Grandfather (Paternal) Cardiac disorder Hypertension Myocardial infarction Grandmother (Maternal) Cancer Larynx cancer Breast cancer Grandfather (Maternal) Prostate cancer Myocardial infarction Denies family history of Ovarian cancer Bleeding disorder Lung cancer Colorectal cancer Social History Smoking Status: Never smoker Second Hand Exposure: No; Do You Dip or Chew Tobacco: No; Hx Alcohol Use: No Hx Substance Use: No Preferred Language: Cook Islander Communication Ability: Effective Visual Impairment: No Limitations Hearing Ability: Normal Cyber Engineer Required: No Beliefs That Will Affect Care: None marital status: Current Living Situation: Spouse current occupational status: employed Feels Safe at Home: Yes Childhood Exposure to Second-Hand Smoke: No Diet: regular Diet Comment: regular caffeine: Yes (1 cup day) during the past year weight has: other Dental Care, Regularly: Yes Physical Activity Frequency: Daily Seatbelt Use: always Sunscreen Use: Yes Allergies Allergies Allergy/AdvReac Type Severity Reaction Status Date / Time cefdinir Allergy Severe Hives Verified 12/01/24 19:49 Penicillins Allergy Severe Hives Verified 12/01/24 19:49 metoclopramide AdvReac Intermediate compulsive Verified 12/01/24 19:49 shakes Home Meds Home Medications Medication Instructions Recorded Confirmed multivitamin 1 tab PO DAILY 12/19/21 12/02/24 Saccharomyces boulardii 250 mg 250 mg PO QAM 01/22/24 12/02/24 capsule (Daily Probiotic (S. boulardii)) fexofenadine 180 mg tablet 180 mg PO DAILY 12/01/24 12/02/24 sumatriptan succinate 50 mg tablet 50 mg PO DIRECTED PRN migraine 12/02/24 12/02/24 headache Previous Rx's Medication Instructions Recorded fluticasone propionate 50 2 spray intranasal DAILY #16 grams 06/23/23 mcg/actuation nasal spray,suspension (Flonase Allergy Relief) alprazolam 0.25 mg tablet 0.25 mg PO BID PRN anxiety #20 tabs 08/26/23 ondansetron HCl 4 mg tablet 4 mg PO Q6H PRN migraine headache 02/17/24 #30 tabs hydroxyzine pamoate 25 mg capsule 25 mg PO Q8H PRN anxiety #30 caps 03/14/24 (Vistaril) valacyclovir 1 gram tablet 2,000 mg (2 x 1 gram) PO BID PRN 10/11/24 (Valtrex) cold sores #14 tabs hydroxyzine HCl 10 mg tablet 10 mg PO Q8H PRN insomnia/anxiety 11/22/24 #30 tabs Results & Data (ED) Vital Signs Vital Signs - 24 hr 12/02/24 05:36 12/02/24 05:44 12/02/24 06:34 Temperature 36.8 C Temperature Source Oral Pulse Rate 124 H 105 H 99 H Pulse Rate [Right Finger] Pulse Rate from SpO2 Sensor Pulse Rhythm Regular Pulse Rhythm [Right Finger] Respiratory Rate 20 16 Respiratory Effort / Characteristics Non-Labored Spontaneous Respiratory Depth Normal Respiratory Pattern Regular Blood Pressure 132/94 Blood Pressure [Left Arm] Blood Pressure Mean 106 Blood Pressure Mean [Left Arm] Pulse Oximetry 98 99 Oxygen Delivery Method Room Air Room Air Sepsis Recent Fever Within 48 Hours Yes Sepsis New/Unexplained Change in Mental Status N/A Sepsis Action Taken by Nursing No Action Required 12/02/24 06:36 12/02/24 06:42 12/02/24 07:00 Temperature Temperature Source Pulse Rate 88 Pulse Rate [Right Finger] 88 Pulse Rate from SpO2 Sensor 85 Pulse Rhythm Pulse Rhythm [Right Finger] Regular Respiratory Rate 16 19 Respiratory Effort / Characteristics Respiratory Depth Normal Respiratory Pattern Blood Pressure 127/72 Blood Pressure [Left Arm] 119/82 Blood Pressure Mean 90 Blood Pressure Mean [Left Arm] 94 Pulse Oximetry 99 97 100 Oxygen Delivery Method Room Air Room Air Sepsis Recent Fever Within 48 Hours Sepsis New/Unexplained Change in Mental Status Sepsis Action Taken by Nursing 12/02/24 07:27 12/02/24 08:00 12/02/24 08:30 Temperature Temperature Source Pulse Rate 73 105 H 79 Pulse Rate [Right Finger] Pulse Rate from SpO2 Sensor 72 101 H 79 Pulse Rhythm Pulse Rhythm [Right Finger] Respiratory Rate 16 13 16 Respiratory Effort / Characteristics Respiratory Depth Respiratory Pattern Blood Pressure 114/71 115/77 116/65 Blood Pressure [Left Arm] Blood Pressure Mean 85 89 82 Blood Pressure Mean [Left Arm] Pulse Oximetry 98 97 97 Oxygen Delivery Method Sepsis Recent Fever Within 48 Hours Sepsis New/Unexplained Change in Mental Status Sepsis Action Taken by Nursing 12/02/24 09:03 Temperature Temperature Source Pulse Rate 73 Pulse Rate [Right Finger] Pulse Rate from SpO2 Sensor 71 Pulse Rhythm Pulse Rhythm [Right Finger] Respiratory Rate 18 Respiratory Effort / Characteristics Respiratory Depth Respiratory Pattern Blood Pressure 118/66 Blood Pressure [Left Arm] Blood Pressure Mean 83 Blood Pressure Mean [Left Arm] Pulse Oximetry 95 Oxygen Delivery Method Sepsis Recent Fever Within 48 Hours Sepsis New/Unexplained Change in Mental Status Sepsis Action Taken by Retirement Medications Current Medication List: was personally reviewed by me Laboratory Data Attestation: I reviewed the patient's lab results. 12/02/24 06:24 12/02/24 06:24 Lab Results 12/02/24 12/02/24 Range/Units 06:24 06:30 WBC 10.51 (4.8-10.8) K/ul RBC 4.31 (4.20-5.40) M/uL Hgb 12.9 (12.0-16.0) g/dl Hct 38.7 (37.0-47.0) % MCV 89.8 (80.0-100.0) fL MCH 29.9 (25.0-34.0) pg MCHC 33.3 (32.0-36.0) g/dL RDW Std Deviation 41.0 (36.4-46.3) fL RDW Coeff of Debo 12.3 (11.5-14.5) % Plt Count 258 (130-400) K/uL MPV 9.3 L (9.4-12.4) fL Immature Gran % (Auto) 0.4 % Neut % (Auto) 80.8 % Lymph % (Auto) 12.7 % [place] % (Auto) 5.6 % Eos % (Auto) 0.3 % Baso % (Auto) 0.2 % Neut # (Auto) 8.49 H (1.40-6.50) K/uL Lymph # (Auto) 1.34 (1.20-3.40) K/uL [place] # (Auto) 0.59 (0.11-0.59) K/uL Eos # (Auto) 0.03 (0.00-0.50) K/uL Baso # (Auto) 0.02 (0.00-0.20) K/uL Immature Gran # (Auto) 0.04 (0.01-0.20) K/uL Sodium 141 (136-145) mmol/L Potassium 3.5 (3.5-5.1) mmol/L Chloride 108 H (98-107) mmol/L Carbon Dioxide 23 (21-32) mmol/L Anion Gap 10 (3-11) BUN 11 (6-23) mg/dl Creatinine 0.77 (0.6-1.2) mg/dl Est Cr Clr Drug Dosing 97.0 ml/min eGFR 107.02 BUN/Creatinine Ratio 14.3 (10-20) Glucose 92 (70-99(Fasting)) mg/dl Calcium 9.0 (8.6-10.3) mg/dl Magnesium 1.9 (1.7-2.4) mg/dl Total Bilirubin 0.7 (0.2-1.0) mg/dl AST 11 L (13-39) U/L ALT 15 (7-52) U/L Alkaline Phosphatase 39 (34-104) U/L Total Protein 7.2 (6.0-8.3) gm/dl Albumin 4.4 (3.4-5.0) gm/dl Globulin 2.8 (2.5-4.0) gm/dl Albumin/Globulin Ratio 1.6 (0.9-2) TSH 2.277 (0.300-4.500) uIu/ml HCG, Qual Negative (Negative) Urine Color Yellow Urine Appearance Clear (Clear) Urine pH 6.0 (4.5-7.5) Ur Specific [place] 1.034 H (1.000-1.030) Urine Protein Negative (Negative) Urine Glucose (UA) Negative (Negative) Urine Ketones 1+ H (Negative) Urine Blood Negative (Negative) Urine Nitrite Negative (Negative) Urine Bilirubin Negative (Negative) Urine Urobilinogen Negative (Negative) Ur Leukocyte Esterase 1+ H (Negative) Urine WBC (Auto) 6-10 H (0-5) /hpf Urine RBC (Auto) 0-2 (0-2) /hpf U Hyaline Cast (Auto) 0-2 (0-2) /lpf U Epithel Cells (Auto) 6-10 H (0-2) /hpf Urine Bacteria (Auto) 1+ H (None Seen) Urine Comment Anaplasma Smear See Comment Babesia Smear See Comment Lyme Disease Screen Negative (Negative) Administered Medications Fexofenadine HCl (Fexofenadine Hcl 180 Mg Tab) 180 mg PO DAILY [facility] Stop: 01/01/25 13:49 Last Admin: 12/02/24 14:54 Dose: Not Given Documented By: BS Fluticasone Propionate (Fluticasone Propionate Na Spr 16 Gm Btl) 1 sprays NA BID [facility] Stop: 01/01/25 13:49 Last Admin: 12/02/24 14:55 Dose: Not Given Documented By: GUSTAVO Prochlorperazine 5 mg/ Syringe 5 mls @ 5 mls/min IV Q6H PRN PRN Reason: Nausea And Vomiting Stop: 01/01/25 13:49 Last Admin: 12/02/24 14:21 Dose: 5 mls/min Documented By: WILMA Meclizine HCl (Meclizine Hcl 25 Mg Tab) 25 mg PO Q8H [facility] Stop: 01/01/25 13:49 Last Admin: 12/02/24 15:56 Dose: Not Given Documented By: BS Oxymetazoline HCl (Oxymetazoline 0.05% 30 Ml Btl) 1 sprays [place] BID [facility] Stop: 12/05/24 13:49 Last Admin: 12/02/24 14:55 Dose: Not Given Documented By: GUSTAVO Discontinued Medications Acetaminophen (Acetaminophen 325 Mg Tab) Confirm Administered Dose 650 mg .ROUTE .STK-MED ONE Stop: 12/02/24 12:53 Last Admin: 12/02/24 14:04 Dose: Not Given Documented By: GRACIE Diphenhydramine HCl (Diphenhydramine 50 Mg/Ml Vial) 12.5 mg IV NOW STA Stop: 12/02/24 07:34 Last Admin: 12/02/24 07:52 Dose: 12.5 mg Documented By: SOFÍA Diphenhydramine HCl (Diphenhydramine 50 Mg/Ml Vial) 25 mg IV NOW STA Stop: 12/02/24 14:41 Last Admin: 12/02/24 14:45 Dose: 25 mg Documented By: GRACIE Diphenhydramine HCl (Diphenhydramine 50 Mg/Ml Vial) Confirm Administered Dose 50 mg .ROUTE .STK-MED ONE Stop: 12/02/24 14:43 Last Admin: 12/02/24 14:44 Dose: Not Given Documented By: GRACIE Sodium Chloride (Nss) 1,000 mls @ 999 mls/hr IV .Q1H1M [facility] Stop: 12/02/24 07:00 Last Infusion: 12/02/24 08:10 Dose: Infused Documented By: Admin: 12/02/24 06:43 Dose: 999 mls/hr Documented By: SARAHI Promethazine HCl (Phenergan) 6.25 mg in 50.25 mls @ 201 mls/hr IV NOW STA Stop: 12/02/24 06:38 Last Infusion: 12/02/24 08:10 Dose: Infused Documented By: Admin: 12/02/24 07:15 Dose: 201 mls/hr Documented By: RAPHAEL Ketorolac Tromethamine (Ketorolac Tromethamine 15 Mg/Ml Vial) 15 mg IV NOW STA Stop: 12/02/24 06:25 Last Admin: 12/02/24 07:15 Dose: 15 mg Documented By: RAPHAEL Ondansetron HCl (Ondansetron Inj 2 Mg/Ml 2 Ml Vial) 4 mg IV NOW STA Stop: 12/02/24 06:25 Last Admin: 12/02/24 07:15 Dose: 4 mg Documented By: RAPHAEL Ondansetron HCl (Ondansetron Inj 2 Mg/Ml 2 Ml Vial) Confirm Administered Dose 4 mg .ROUTE .STK-MED ONE Stop: 12/02/24 12:53 Last Admin: 12/02/24 12:55 Dose: 4 mg Documented By: GRACIE Prochlorperazine (Prochlorperazine 5 Mg/Ml 2 Ml Vial) Confirm Administered Dose 10 mg .ROUTE .STK-MED ONE Stop: 12/02/24 14:05 Last Admin: 12/02/24 14:44 Dose: Not Given Documented By: GRACIE Discharge Plan Visit Data Chief Complaint: Dizziness Stated Complaint: HEAD PAIN,VOMITING, PASS OUT? ED Provider: Pradip Morris Discharge Problem: Dizziness, Vomiting, Right ear pain, Middle ear effusion, Failure of outpatient treatment Patient Disposition: Admitted As Inpatient Condition: Fair Discharge Instructions Interventions: ED Discharge Assessment Last Done: 12/02/24 13:51 Discharge Problem: Vomiting Qualifiers: Vomiting type: unspecified Nausea presence: with nausea Qualified Code(s): R 11.2 - Nausea with vomiting, unspecified Middle ear effusion Qualifiers: Laterality: bilateral Qualified Code(s): H65.93 - Unspecified nonsuppurative otitis media, bilateral
[2024-12-02] MEDS: SODIUM CHLORIDE 0.9% 1,000 ML IV SCH (06:43)
[2024-12-02 06:50] LABS: Hematocrit (blood only) 38.7 % (37.0-47.0); Hemoglobin 12.9 g/dl (12.0-16.0); Immature Granulocytes # (auto) 0.04 K/uL (0.01-0.20); Immature Granulocytes % (auto) 0.4 %; Mean Corpuscular Hemoglobin 29.9 pg (25.0-34.0); Mean Corpuscular Volume 89.8 fL (80.0-100.0); Platelet Count 258 K/uL (130-400); RDW Standard Deviation 41.0 fL (36.4-46.3); Red Blood Count 4.31 M/uL (4.20-5.40); White Blood Count 10.51 K/ul (4.8-10.8)
[2024-12-02 06:57] LABS: Pregnancy Test, Serum Negative (Negative)
[2024-12-02] MEDS: PROMETHAZINE 6.25 MG/50.25 ML BAG IV STA (07:15)
[2024-12-02] MEDS: KETOROLAC TROMETHAMINE 15 MG/ML VIAL IV STA (07:15)
[2024-12-02] MEDS: ONDANSETRON INJ 2 MG/ML 2 ML VIAL IV STA (07:15)
[2024-12-02 07:37] LABS: Thyroid Stimulating Hormone 2.277 uIu/ml (0.300-4.500)
[2024-12-02 07:45] LABS: Appearance Urine Clear (Clear); Bacteria Urine Automated 1+ (None Seen); Cast Urine Automated 0-2 /lpf (0-2); Glucose Urine UA Negative (Negative); RBC Urine Automated 0-2 /hpf (0-2)
[2024-12-02] MEDS: diphenhydrAMINE 50 MG/ML VIAL IV STA ×2 (07:52→14:45)
[2024-12-02 08:03] LABS: Alanine Aminotransferase 15.0 U/L (7-52); Albumin Globulin Ratio 1.6 (0.9-2); Alkaline Phosphatase 39.0 U/L (34-104); Anion Gap 10.0 (3-11); Bilirubin,Total 0.7 mg/dl (0.2-1.0); Blood Urea Nitrogen 11.0 mg/dl (6-23); Calcium 9.0 mg/dl (8.6-10.3); Carbon Dioxide 23.0 mmol/L (21-32); Chloride 108.0 mmol/L (98-107); Creatinine Clr Calc Pharmacy 97.0 ml/min; Globulin 2.8 gm/dl (2.5-4.0); Glucose 92.0 mg/dl (70-99(Fasting)); Magnesium 1.9 mg/dl (1.7-2.4); Potassium 3.5 mmol/L (3.5-5.1); Sodium 141.0 mmol/L (136-145); Total Protein 7.2 gm/dl (6.0-8.3)
--- NOTE | 2024-12-02 09:25 | History & Physical Report ---
Date of Service December 02, 2024 Assessment & Plan (1) Acute otitis media, right: (2) Acute vestibular syndrome: (3) Failure of outpatient treatment: (4) Abnormal finding on MRI of brain: (5) Classic migraine with aura: Plan 28 y/o with history of myringotomy tubes (removed) and seasonal allergies who is admitted after failure of outpatient treatment for left acute otitis media and acute vestibular syndrome with intractable nausea/vomiting and inability to tolerate oral intake Three weeks of R ear pain and vertigo, possibly preceded by URI or flare of seasonal allergies Has had course of azithromycin and clindamycin/prednisone without improvement. On exam there is a serous effusion behind L TM, however, there is a purulent effusion behind R TM. She may have a resistant infection because azithro will miss resistant pneumococcus and clinda will miss H. flu. She has hives to both PCN and cephalosporin #R otitis media -treat with levofloxacin -avoid systemic steroid because of recent elevated IOP due to prednisone -decondestants - flonase, afrin x 72h, sudafed -discuss with ENT, may need consult or expedited outpatient follow up unless significant improvement over the weekend #acute vestibular syndrome - central vertigo ruled out by negative brain MRI/MRA and also is related to the acute R ear symptoms -not tolerating po so will continue IV benaryl 12.5 mg q8h for vertigo -PRN ondansetron - (normal QTC on EKG today) -she had akathesia reaction to compazine 5 mg which I treated with 25 mg IV benadryl and has resolved - added to allergies list. Similar reaction to reglan in past. Avoid phenergan if possible #possible UTI vs contaminated UA - with the pelvic discomfort she could have UTI. Urine Cx added. Levofloxacin will treat. #anxiety - PRN alprazolam. Hold hydroxyzine because of IV benadryl overlap #HX migraine with aura - sumatriptan PRN. Current ear pain does not seem migrainous #Abnormal brain MRI - L frontal lobe abnormality unchanged since 2014, reviewed serial old MRIs in [facility] DVT ppx - low risk, SCD/ambulation History of Present Illness Chief Complaint: nausea/vomiting, right ear pain Primary Care Provider: Jessie Morales, DO 28 y/o with history of myringotomy tubes (removed) and seasonal allergies who came in with intractable nausea/vomiting and poor po intake, vertigo, severe right ear pain, subjective fever/chills, malaise and fatigue. Symptoms started three weeks ago. She had some upper respiratory symptoms before that but she can't tell whether it was seasonal allergies or a viral infection. She was treated with azithromycin and had no improvement. She was subsequently treated with clindamycin and prednisone with no improvement. She developed some vision symptoms which were evaluated in the ED, had neuroimaging which was negative for acute issues, found to have elevated IOP. She was seen by optho and elevated IOP was determined to be caused by prednisone which was stopped. Vision symptoms resolved. She has been seen in the ED for the past consecutive three days with persistent nausea/vomiting, vertigo, right ear pain. She has history of migraine but they are not similar to this. She has had some vague pelvic pain or discomfort after voiding and ED gave UTI treatment yesterday, rx for cipro which she was never able to crab picker. No burning with urination or frequency. Doesn't have abdominal pain except this pain after voiding. Admitted for symptom control since she is unable to tolerate po, despite several doses IV antiemetic given in ED. Allergies Allergy/AdvReac Type Severity Reaction Status Date / Time cefdinir Allergy Severe Hives Verified 12/01/24 19:49 Penicillins Allergy Severe Hives Verified 12/01/24 19:49 metoclopramide AdvReac Intermediate compulsive Verified 12/01/24 19:49 shakes prochlorperazine AdvReac Intermediate Verified 12/02/24 17:31 [From Compazine] Home Medications Medication Instructions Recorded Confirmed Type multivitamin 1 tab PO DAILY 12/19/21 12/02/24 History fluticasone propionate 50 2 spray intranasal DAILY #16 grams 06/23/23 12/02/24 Rx mcg/actuation nasal spray,suspension (Flonase Allergy Relief) alprazolam 0.25 mg tablet 0.25 mg PO BID PRN anxiety #20 tabs 08/26/23 12/02/24 Rx Saccharomyces boulardii 250 mg 250 mg PO QAM 01/22/24 12/02/24 History capsule (Daily Probiotic (S. boulardii)) ondansetron HCl 4 mg tablet 4 mg PO Q6H PRN migraine headache 02/17/24 12/02/24 Rx #30 tabs hydroxyzine pamoate 25 mg capsule 25 mg PO Q8H PRN anxiety #30 caps 03/14/24 12/02/24 Rx (Vistaril) valacyclovir 1 gram tablet 2,000 mg (2 x 1 gram) PO BID PRN 10/11/24 12/02/24 Rx (Valtrex) cold sores #14 tabs hydroxyzine HCl 10 mg tablet 10 mg PO Q8H PRN insomnia/anxiety 11/22/24 12/02/24 Rx #30 tabs fexofenadine 180 mg tablet 180 mg PO DAILY 12/01/24 12/02/24 History sumatriptan succinate 50 mg tablet 50 mg PO DIRECTED PRN migraine 12/02/24 12/02/24 History headache Past Med/Surg History Problem List (Updated 12/02/24 @ 17:46 by Malka Rushing MD) Acute vestibular syndrome Acute otitis media, right Failure of outpatient treatment (Acute) Middle ear effusion (Acute) Right ear pain (Acute) Vomiting (Acute) Dizziness (Acute) Fibroid (Acute) Abdominal pain (Acute) Lesion of frontal lobe of brain (Acute) Visual disturbance (Acute) Lesion of frontal lobe of brain Left Abnormal finding on MRI of brain Depression Cerebellar tonsillar ectopia Allergic rhinitis Anxiety Classic migraine with aura Vitamin D deficiency Medical History Lymphedema Surgical History S/P endometrial ablation (02/2023) Status post tubal ligation 10/2021 Status post section 10/2021 S/P tube myringotomy (~05/2015) w/ removal in May 2015 H/O wisdom tooth extraction Family History Father Family history of alcohol abuse Environmental allergies Drug abuse Hypertension Mother , August 2024 Anxiety Environmental allergies Family history of depression Obesity Thyroid trouble Endometrial cancer Sister Anxiety Family history of depression Endometriosis Obesity Grandfather (Paternal) Cardiac disorder Hypertension Myocardial infarction Grandmother (Maternal) Cancer Larynx cancer Breast cancer Grandfather (Maternal) Prostate cancer Myocardial infarction Denies family history of Ovarian cancer Bleeding disorder Lung cancer Colorectal cancer Social History Smoking Status: Never smoker Second Hand Exposure: No; Do You Dip or Chew Tobacco: No; Hx Alcohol Use: No Hx Substance Use: No Preferred Language: Danish Communication Ability: Effective Visual Impairment: No Limitations Hearing Ability: Normal Golf Tournament Consultant Required: No Beliefs That Will Affect Care: None marital status: Current Living Situation: Spouse current occupational status: employed Feels Safe at Home: Yes Childhood Exposure to Second-Hand Smoke: No Diet: regular Diet Comment: regular caffeine: Yes (1 cup day) during the past year weight has: other Dental Care, Regularly: Yes Physical Activity Frequency: Daily Seatbelt Use: always Sunscreen Use: Yes Review of Systems 2 Review of Systems: All systems reviewed & are unremarkable except as noted in HPI & below Physical Exam 2 Physical Exam: Last 24h vitals reviewed GEN: no acute distress, sitting in bed HEENT: pupils equal, sclerae anicteric, moist MM. some horizontal nystagmus especially looking leftward and there is some mild torsional component looking upward. L ear canal without erythema, TM is intact and shiny/clear with some bulging. R ear canal with minimal erythema, canal courses up and to the right and is small, minimal wax, TM is bulging and with desai opaque effusion. No pain with moving pinna, no tenderness of mastoid process, some pain is radiating to right occiput at the area of the trapezius insertion which is not tender RESP: normal WOB, CTAB CV: reg no mrg ABD: soft/nt/nd +BT : no jurado SKIN: warm and dry, no generalized rashes NEURO: AOx person, place, and situation. Face symmetric, speech normal, moves 4 ext spontaneously and equally. No tremor or rigidity Results & Data Results & Data Vital Signs (Past 12 Hours) Vital Signs Temp Pulse Pulse Resp BP BP Pulse Ox 12/02/24 07:00 88 19 127/72 100 12/02/24 06:42 88 16 119/82 97 12/02/24 06:36 99 12/02/24 06:34 99 H 16 99 12/02/24 05:44 105 H 12/02/24 05:36 36.8 C 124 H 20 132/94 98 O2 Del Method 12/02/24 07:00 09/19/25 06:42 Room Air 12/02/24 06:36 Room Air 12/02/24 06:34 Room Air 12/02/24 05:44 12/02/24 05:36 Room Air Laboratory Results 12/02/24 06:24 12/02/24 06:24 cassy / bab smears neg and PCRs pending lyme screen neg UA abnormal but appears contaminated, similar to yesterday's WBC is 10.5 with left shift Personally reviewed EKG tracing and it is normal 11/30 brain MRI and MRA of head - unremarkable excepting known area of increased T2 signal in L frontal lobe which has been unchanged since 2015. No sinusitis. 12/01 CT abdomen/pelvis - suggestive of uterine fibroid otherwise unremarkable Code Status & VTE Plan VTE Prophylaxis Plan VTE Prophylaxis will be ordered: Yes PG Care Time/CCT Total # of Minutes Spent Total Time Spent with Patient: Total time spent is greater than 50% in coordination of care (as documented) at patient's floor/unit and/or counseling patient: Coding Level of Care Code 74394 INT INP/OBS CARE 3/75MIN Diagnoses Acute otitis media, right H66.91 Acute vestibular syndrome H81.90 Failure of outpatient treatment Z78.9 Abnormal finding on MRI of brain R90.89 Classic migraine with aura G43.109
--- NOTE | 2024-12-02 09:25 | Electrocardiogram Report ---
Test Reason : Blood Pressure : */* mmHG Vent. Rate : 84 BPM Atrial Rate : 84 BPM P-R Int : 148 ms QRS Dur : 90 ms QT Int : 356 ms P-R-T Axes : 61 80 38 degrees QTcB Int : 420 ms Normal sinus rhythm with sinus arrhythmia Normal ECG When compared with ECG of 30-Nov-2024 09:54, (unconfirmed) No significant change was found Confirmed by Jermain Campbell ([id number]) on 12/02/2024 9:25:02 AM Referred By: REFERRED SELF Confirmed By: Jermain Campbell
[2024-12-02] MEDS: ONDANSETRON INJ 2 MG/ML 2 ML VIAL ONE (12:55)
[2024-12-02] MEDS ORDERED: ACETAMINOPHEN 325 MG TAB PO PRN (13:50)
[2024-12-02] MEDS ORDERED: MAGNESIUM HYDROXIDE SUSP 30 ML UDC PO PRN (13:50)
[2024-12-02] MEDS ORDERED: ALUMINUM/MAGNESIUM SUSP 30 ML UDC PO PRN (13:50)
[2024-12-02] MEDS ORDERED: MELATONIN 3 MG TAB PO PRN (13:50)
[2024-12-02] MEDS ORDERED: POLYETHYLENE (MIRALAX) 17 GM PACK PO PRN (13:50)
[2024-12-02] MEDS: ACETAMINOPHEN 325 MG TAB ONE (14:04)
[2024-12-02] MEDS: PROCHLORPERAZINE 5 MG in SYRINGE 4 ML IV PRN (14:21)
[2024-12-02] MEDS: PROCHLORPERAZINE 5 MG/ML 2 ML VIAL ONE (14:44)
[2024-12-02] MEDS: diphenhydrAMINE 50 MG/ML VIAL ONE (14:44)
[2024-12-02] MEDS: FEXOFENADINE HCL 180 MG TAB PO SCH (14:54)
[2024-12-02] MEDS: OXYMETAZOLINE 0.05% 30 ML BTL NAE SCH (14:55)
[2024-12-02] MEDS: FLUTICASONE PROPIONATE NA SPR 16 GM BTL SCH (14:55)
[2024-12-02] MEDS: MECLIZINE HCL 25 MG TAB PO SCH (15:56)
[2024-12-02] MEDS: ACETAMINOPHEN 1,000 MG/100 ML VIAL IV PRN (17:27)
[2024-12-02] MEDS ORDERED: KETOROLAC 30 MG/ML VIAL IV PRN (18:16)
[2024-12-02] MEDS: D5W AND 1/2NSS + 20MEQ KCL 20 MEQ/1,000 ML BAG IV SCH (20:18)
[2024-12-02] MEDS: PSEUDOEPHEDRINE HCL 30 MG TAB PO SCH (20:18)
[2024-12-02] MEDS: ONDANSETRON INJ 2 MG/ML 2 ML VIAL IV PRN (20:18)
[2024-12-03] MEDS: diphenhydrAMINE 50 MG/ML VIAL IV SCH (00:39)
[2024-12-03 01:12] VITALS: O2SAT 96
[2024-12-03 07:51] VITALS: BP 112/70; PULSE 57; RESP 19; TEMP 98.2
--- NOTE | 2024-12-03 11:45 | Discharge Summary ---
Discharge Summary Date of Service December 03, 2024 Principal Dx & Hospital Course #1 = Principal Diagnosis (1) Acute otitis media, right: (2) Acute vestibular syndrome: (3) Failure of outpatient treatment: (4) Abnormal finding on MRI of brain: (5) Classic migraine with aura: Plan 28 y/o with history of myringotomy tubes (removed) and seasonal allergies who is admitted after failure of outpatient treatment for left acute otitis media and acute vestibular syndrome with intractable nausea/vomiting and inability to tolerate oral intake Three weeks of R ear pain and vertigo, possibly preceded by URI or flare of seasonal allergies Has had course of azithromycin and clindamycin/prednisone without improvement. On exam there is a serous effusion behind L TM, however, there is a purulent effusion behind R TM. She may have a resistant infection because azithro will miss resistant pneumococcus and clinda will miss H. flu. She has hives to both PCN and cephalosporin #R otitis media -treat with levofloxacin -avoid systemic steroid because of recent elevated IOP due to prednisone -decondestants - flonase, afrin x 72h, sudafed -discuss with ENT, may need consult or expedited outpatient follow up unless significant improvement over the weekend #acute vestibular syndrome - central vertigo ruled out by negative brain MRI/MRA and also is related to the acute R ear symptoms -not tolerating po so will continue IV benaryl 12.5 mg q8h for vertigo -PRN ondansetron - (normal QTC on EKG today) -she had akathesia reaction to compazine 5 mg which I treated with 25 mg IV benadryl and has resolved - added to allergies list. Similar reaction to reglan in past. Avoid phenergan if possible #possible UTI vs contaminated UA - with the pelvic discomfort she could have UTI. Urine Cx added. Levofloxacin will treat. #anxiety - PRN alprazolam. Hold hydroxyzine because of IV benadryl overlap #HX migraine with aura - sumatriptan PRN. Current ear pain does not seem migrainous #Abnormal brain MRI - L frontal lobe abnormality unchanged since 2014, reviewed serial old MRIs in [facility] Patient is medically and hemodynamically stable for discharge home on course of levaquin (x6 more days) and PRN meclizine. She will need close ENT follow up and Dr. Torrez will see in [place] office on Thursday per my conversation with him. She can f/u with PCP within 1 week or sooner if needed. Advised not to drive when taking Meclizine. Scripts sent to pharmacy. Admission HPI Per Admitting Provider 28 y/o with history of myringotomy tubes (removed) and seasonal allergies who came in with intractable nausea/vomiting and poor po intake, vertigo, severe right ear pain, subjective fever/chills, malaise and fatigue. Symptoms started three weeks ago. She had some upper respiratory symptoms before that but she can't tell whether it was seasonal allergies or a viral infection. She was treated with azithromycin and had no improvement. She was subsequently treated with clindamycin and prednisone with no improvement. She developed some vision symptoms which were evaluated in the ED, had neuroimaging which was negative for acute issues, found to have elevated IOP. She was seen by optho and elevated IOP was determined to be caused by prednisone which was stopped. Vision symptoms resolved. She has been seen in the ED for the past consecutive three days with persistent nausea/vomiting, vertigo, right ear pain. She has history of migraine but they are not similar to this. She has had some vague pelvic pain or discomfort after voiding and ED gave UTI treatment yesterday, rx for cipro which she was never able to brick picker. No burning with urination or frequency. Doesn't have abdominal pain except this pain after voiding. Adm itted for symptom control since she is unable to tolerate po, despite several doses IV antiemetic given in ED. Discharge Exam GENERAL: 28 yo Well-developed, well-nourished WF. NAD. EARS: R ear with grayish effusion, but TM is not erythematous or bulging. LUNGS: Clear to auscultation bilaterally. No accessory muscle use. No W/R/R. CARDIOVASCULAR: Regular rate and rhythm. No M/G/R. No JVD. NEUROLOGIC: A&O x3. No focal neurological deficits. CN II-XII grossly intact. SKIN: Warm, dry, intact. No rashes or lesions. Discharge Plan Discharge Items Patient Disposition: Home - Self-Care Reason For Visit: VERTIGO, MALAISE Discharge Diagnosis: Acute R ear infection, vertigo Condition on Discharge: Fair Activity: Resume your previous activity Non-emergency contact: Primary Care Provider and Specialist Call non-emergency contact if: you have any medication questions and your symptoms worsen Follow-up/Referrals: Jessie Morales DO [Primary Care Provider] - Diet: Regular Addtl Attending Provider Instructions: You were hospitalized with an acute ear infection in the right ear. Due to allergies and what you were treated with previously, you were started on Levaquin 750mg daily. You have also received Benadryl and your symptoms overall have improved. Will plan to discharge you home today, a prescription for Levaquin and for Meclizine (for the vertigo) will both be sent to your pharmacy. Please take the Levaquin until it is completely gone and the Meclizine can be used as needed for the vertigo symptoms. Be advised, this medication can make you drowsy, so do not drive when taking this medication. Your next dose of levaquin is due on 12/03/24. Take with dinner. Additionally, you will need follow up with ENT. Dr. Torrez with [facility] has confirmed that he will see you in the [place] office on Thursday, December 06. Please call the office on Thursday to finalize this to close the loop. You can take Ibuprofen or Tylenol as needed for any ear discomfort. Follow up with your PCP within 1 week of discharge or sooner if needed. In the event of a medical emergency, call 911 or go to the ER. Pending Studies at Discharge: No Stand-Alone Forms: My [facility] Contextors, Smoking Cessation Medications and DC Order Prescriptions: New meclizine 25 mg Tablet 25 mg PO TID PRN (Reason: vertigo) Qty: 30 0RF fluticasone propionate [Flonase Allergy Relief] 50 mcg/actuation spray,suspension 1 spray intranasal Q12H Qty: 16 0RF Rx Instructions: administer into each nostril levofloxacin 750 mg tablet 750 mg PO DAILY Qty: 6 0RF Continued alprazolam 0.25 mg tablet 0.25 mg PO BID PRN (Reason: anxiety) Qty: 20 0RF ondansetron HCl 4 mg tablet 4 mg PO Q6H PRN (Reason: migraine headache) Qty: 30 1RF hydroxyzine pamoate [Vistaril] 25 mg capsule 25 mg PO Q8H PRN (Reason: anxiety) Qty: 30 5RF Rx Instructions: PER PT "USUALLY TAKE EVERY HS FOR SLEEP". valacyclovir [Valtrex] 1 gram tablet 2,000 mg PO BID PRN (Reason: cold sores) Qty: 14 0RF Rx Instructions: Start DIDIER at onset of symptoms. Repeat course PRN fluticasone propionate [Flonase Allergy Relief] 50 mcg/actuation spray,suspension 2 spray intranasal DAILY Qty: 16 5RF Rx Instructions: administer into each nostril multivitamin Tablet 1 tab PO DAILY Saccharomyces boulardii [Daily Probiotic (S. boulardii)] 250 mg capsule 250 mg PO QAM hydroxyzine HCl 10 mg tablet 10 mg PO Q8H PRN (Reason: insomnia/anxiety) Qty: 30 0RF Rx Instructions: PER PT "DID NOT START DOSE YET". fexofenadine [Joanne] 180 mg Tablet 180 mg PO DAILY sumatriptan succinate 50 mg tablet 50 mg PO DIRECTED MDD 200 mg PRN (Reason: migraine headache) Rx Instructions: Take 1 tab PO at onset of headache. Repeat in 2hrs PRN. Do not exceed 4 tabs in 24hrs. PRN; Discharge Orders: Discharge Order (Routine); Ordered 12/03/24 Ordered By: Candi Barney Admission Data Admit Date/Time: 12/02/24 09:23 Attending Provider: Malka Rushing Admit Provider: Malka Rushing Primary Care Provider: Jessie Morales Other Providers: Nelson Umaña Sarah E Hospital Stay Data Consultations 12/02/24 08:36 ED Decision to Admit Stat 12/02/24 09:10 ED Decision to Admit Stat Pending Results Patient Have Any Pending Studies at Discharge: No Discharge Instructions Given to Patient (Per Discharging Provider) You were hospitalized with an acute ear infection in the right ear. Due to allergies and what you were treated with previously, you were started on Levaquin 750mg daily. You have also received Benadryl and your symptoms overall have improved. Will plan to discharge you home today, a prescription for Levaquin and for Meclizine (for the vertigo) will both be sent to your pharmacy. Please take the Levaquin until it is completely gone and the Meclizine can be used as needed for the vertigo symptoms. Be advised, this medication can make you drowsy, so do not drive when taking this medication. Your next dose of levaquin is due on 12/03/24. Take with dinner. Additionally, you will need follow up with ENT. Dr. Torrez with [facility] has confirmed that he will see you in the [place] office on December 06. Please call the office on Thursday to finalize this to close the loop. You can take Ibuprofen or Tylenol as needed for any ear discomfort. Follow up with your PCP within 1 week of discharge or sooner if needed. In the event of a medical emergency, call 911 or go to the ER. Total Time Total Time Spent Total Time Spent (In Minutes): 35 minutes Coding Level of Care Code 76616 INP/OBS DISCH >30 MIN Diagnoses Acute otitis media, right H66.91 Acute vestibular syndrome H81.90 Failure of outpatient treatment Z78.9 Abnormal finding on MRI of brain R90.89 Classic migraine with aura G43.109
== END 2024-12-03 12:12 | disposition home or self-care (01) ==
LOC: EDINP 05:33 → ED 05:33 → 3W 13:51

== ENCOUNTER 2025-01-05 14:04 | Observation (INO) ==
--- NOTE | 2025-01-05 14:20 | Emergency Department Note ---
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 Shannen Burris neurology. She was evaluated by him a few days ago where she was started on Phenergan suppositories and indomethacin due to persistent migraines. Due to her symptoms she has not been able to start the medications. She was seen here in the ER yesterday due to worsening symptoms which were treated, improved, and she was sent home for outpatient follow-up. Today she was having an episode of vomiting from a migraine where she was bent over in front of the toilet when her heard her collapse. She was confused and did not know what happened. They believe she had an episode of loss of consciousness. She did hit her head. She denies changes in vision, slurred speech, facial droop, she is not on blood thinners. Describes her migraines on the right side of her head that go down into her neck. These are consistent with her normal migraines. REVIEW OF SYSTEMS: See HPI for pertinent positives and pertinent negatives. ALLERGIES: Cefdinir, penicillin, metoclopramide, prochlorperazine MEDICATIONS: See below PAST MEDICAL HISTORY: See below PHYSICAL EXAM: VITALS: Vitals are noted on the nurses note and reviewed by myself. Vital signs stable. GENERAL: 29-year-old female, sitting comfortably in bed in a dark room, holding an emesis bag, in no acute distress, nondiaphoretic, well-developed well- nourished. SKIN: Capillary refill less than 2 seconds. HEENT: Normocephalic. PERRLA. EOMI. Nares patent. Mucous membranes moist. Neck is supple without nuchal rigidity. No Bar sign or raccoon eyes. HEART: Regular rate and rhythm without murmurs gallops or rubs. LUNGS: CTA BL without wheezes, rales or rhonchi. No retractions or accessory muscle use. ABDOMEN: Positive BS x 4. Soft, nontender, without masses or organomegaly. No guarding or rebound tenderness. MUSCULOSKELETAL: No tenderness upon palpation to the cervical spine, thoracic spine, or lumbar spine. Right cervical paraspinal muscle tenderness. Moves through positions when asked. Moves upper and lower extremities. 5/5 strength bilaterally. Distal pulses intact. NEURO: Patient was alert and oriented to person place and time. No focal neurological deficits. DIFFERENTIAL DIAGNOSIS: Differential diagnosis includes closed head injury, concussion, subarachnoid hemorrhage, epidural hematoma, subdural hematoma, skull fracture, cervical spine fracture, migraine with aura, glioma, among others. ED COURSE AND MEDICAL DECISION MAKING: HISTORY FROM INDEPENDENT HISTORIAN: The patient herself and her . MEDICATIONS GIVEN: Phenergan 12.5 mg IV, Tylenol 1000 mg IV, 1 L normal saline, Toradol 10 mg IV, valproic acid 1 g IV MONITOR: Continuous unix architect: Order was placed for continuous unix architect. Patient was placed on the unix architect and continuous pulse ox. Patient was noted to be in normal sinus rhythm at an initial rate of 74 bpm per my interpretation. EKG: EKG was interpreted by myself as normal sinus rhythm. No obvious arrhythmia. No ST or T wave abnormality. No significant change when compared to previous EKG from 01/04/2025. INTERPRETATION OF LABS: I interpreted the labs with full lab results as below in the lab section of this note. Pertinent lab results discussed in the MDM section below. INTERPRETATION OF IMAGING: Imaging studies were interpreted by myself and read by radiology as per the imaging section of this note. CT head - No acute intracranial abnormality. CT cervical spine - No acute cervical spine fracture or subluxation. ESCALATION OF CARE CONSIDERED: Escalation of care was considered as the patient is now returning after seeing her outpatient neurologist and being evaluated in the ER yesterday for migraine. She was admitted to medicine for further treatment plan and consultation with neurology. CONSULTATIONS: On-call neurology Dr. Pride - Discussed is patient being evaluated in the ER yesterday and today. He recommends doing 1 g of Depakote IV as well as a migraine cocktail. He does believe that at this point she may require an LP and admission to medicine for further evaluation. [facility] Presented the patient to the provider and my discussion with the neurologist. Patient's symptoms are controlled at this time but has had persistent migraine symptoms following closely with neurology. They agreed to evaluating the patient and admitting her to medicine. MDM SUMMARY: I evaluated the 29-year-old female with persistent migraine that presents to the ER due to an episode of migraine with associated vomiting that caused an episode of syncope. She did hit her head. Patient's vitals are stable. Phenergan, Tylenol, and 1 L normal saline were given for symptom management. CT head and cervical spine obtained due to recent fall showing no acute abnormality. On reevaluation of the patient she does confirm that she is feeling a little bit better but is still not well. I did reach out to her neurologist Dr. Pride which can be seen in detail above. He recommends doing 1 g valproic acid IV with a migraine cocktail. Additionally Toradol and 1 g valproic acid were given. Labs obtained showing no leukocytosis. Hemodynamically stable. Coagulation panel within normal limits. No significant electrolyte abnormality. No CYRIL. Troponin normal. Urinalysis shows 3+ ketones. Fluids given. No other acute abnormality. A consultation with the on-call hospitalist can be seen in detail above. Neurologist recommended an LP and admission to medicine for further evaluation. The patient is agreeable to the outlined treatment plan and all questions answered. The patient was admitted to medicine in stable condition. DIAGNOSIS: Syncope, neck pain, headache, fall, nausea and vomiting The chart was completed utilizing [employer] ([employer]) Speech voice recognition software. Grammatical errors, random word insertions, pronoun errors, and incomplete sentences are an occasional consequence of this system due to software limitations, ambient noise, and hardware issues. Any formal questions or concerns about the content, text, or information contained within the body of this dictation should be directly addressed to the provider for clarification. Past Med/Surg History Problem List Nausea & vomiting (Acute) Fall (Acute) Headache (Acute) Neck pain (Acute) Syncope (Acute) Headache (Acute) Neck pain without injury (Acute) Migraine (Acute) Trigeminal autonomic cephalgias Migraine, intractable Classic migraine with aura Aural vertigo, unspecified ear Myofascial neck pain Cervicalgia Acute vestibular syndrome Right ear pain (Acute) Lesion of frontal lobe of brain Left Abnormal finding on MRI of brain Depression Cerebellar tonsillar ectopia Allergic rhinitis Anxiety Vitamin D deficiency Medical History Lymphedema Surgical History S/P endometrial ablation (02/2023) Status post tubal ligation 10/2021 Status post section 10/2021 S/P tube myringotomy (~05/2015) w/ removal in May 2015 H/O wisdom tooth extraction Family History Father Family history of alcohol abuse Environmental allergies Drug abuse Hypertension Mother , August 2024 Anxiety Environmental allergies Family history of depression Obesity Thyroid trouble Endometrial cancer Sister Anxiety Family history of depression Endometriosis Obesity Grandfather (Paternal) Cardiac disorder Hypertension Myocardial infarction Grandmother (Maternal) Cancer Larynx cancer Breast cancer Grandfather (Maternal) Prostate cancer Myocardial infarction Denies family history of Ovarian cancer Bleeding disorder Lung cancer Colorectal cancer Social History Smoking Status: Never smoker Second Hand Exposure: No; Do You Dip or Chew Tobacco: No; Hx Alcohol Use: No Hx Substance Use: No Preferred Language: Bur[place]ian Communication Ability: Effective Visual Impairment: No Limitations Hearing Ability: Normal Electric Installer Required: No Beliefs That Will Affect Care: None marital status: Current Living Situation: Spouse and Family current occupational status: employed How many Children do You have: 1 Feels Safe at Home: Yes Childhood Exposure to Second-Hand Smoke: No Diet: regular Diet Comment: regular caffeine: Yes (1 cup day) during the past year weight has: other Dental Care, Regularly: Yes Physical Activity Frequency: Daily Seatbelt Use: always Sunscreen Use: Yes Assistive Devices: None Allergies Allergies Allergy/AdvReac Type Severity Reaction Status Date / Time cefdinir Allergy Severe Hives Verified 01/04/25 20:28 Penicillins Allergy Severe Hives Verified 01/04/25 20:28 metoclopramide AdvReac Intermediate compulsive Verified 01/04/25 20:28 shakes prochlorperazine AdvReac Intermediate akathesia Verified 01/04/25 20:28 [From Compazine] - required IV benadryl to resolve Home Meds Home Medications Medication Instructions Recorded Confirmed multivitamin 1 tab PO DAILY 12/19/21 01/09/25 Saccharomyces boulardii 250 mg 250 mg PO QAM 01/22/24 01/09/25 capsule (Daily Probiotic (S. boulardii)) fexofenadine 180 mg tablet 180 mg PO DAILY PRN 01/09/25 01/09/25 fexofenadine-pseudoephedrine ER 1 tab PO QAM PRN 01/09/25 01/09/25 180 mg-240 mg tablet,ext.release 24 hr (Joanne-D 24 Hour) Previous Rx's Medication Instructions Recorded hydroxyzine pamoate 25 mg capsule 25 mg PO Q8H PRN anxiety #30 caps 03/14/24 (Vistaril) valacyclovir 1 gram tablet 2,000 mg (2 x 1 gram) PO BID PRN 10/11/24 (Valtrex) cold sores #14 tabs indomethacin 50 mg capsule 50 mg PO BID #60 caps 01/03/25 ondansetron 8 mg disintegrating 8 mg PO BID PRN nausea and 01/03/25 tablet vomiting #60 tabs rizatriptan 10 mg disintegrating 10 mg PO Q2H PRN migraine headache 01/03/25 tablet #12 tabs divalproex 500 mg tablet,delayed 500 mg PO BID #14 tabs 01/06/25 release famotidine 10 mg tablet (Pepcid AC) 10 mg PO BID #60 tabs 01/09/25 fluticasone propionate 50 1 spray intranasal Q12H PRN nasal 01/09/25 mcg/actuation nasal congestion #16 grams spray,suspension (Flonase Allergy Relief) Results & Data (ED) Laboratory Data 01/07/25 06:39 01/07/25 06:39 Lab Results 01/05/25 01/05/25 01/05/25 Range/Units 15:14 16:10 18:04 WBC 7.85 (4.8-10.8) K/ul RBC 4.14 L (4.20-5.40) M/uL Hgb 12.3 (12.0-16.0) g/dl Hct 36.8 L (37.0-47.0) % MCV 88.9 (80.0-100.0) fL MCH 29.7 (25.0-34.0) pg MCHC 33.4 (32.0-36.0) g/dL RDW Std Deviation 39.3 (36.4-46.3) fL RDW Coeff of Debo 12.0 (11.5-14.5) % Plt Count 239 (130-400) K/uL MPV 9.6 (9.4-12.4) fL Immature Gran % (Auto) 0.3 % Neut % (Auto) 58.7 % Lymph % (Auto) 31.2 % Rooks % (Auto) 9.6 % Eos % (Auto) 0.1 % Baso % (Auto) 0.1 % Neut # (Auto) 4.61 (1.40-6.50) K/uL Lymph # (Auto) 2.45 (1.20-3.40) K/uL Rooks # (Auto) 0.75 H (0.11-0.59) K/uL Eos # (Auto) 0.01 (0.00-0.50) K/uL Baso # (Auto) 0.01 (0.00-0.20) K/uL Immature Gran # (Auto) 0.02 (0.01-0.20) K/uL PT 12.3 H (9.0-12.0) Seconds INR 1.2 H (0.9-1.1) APTT 27 (21-31) Seconds PTT Ratio 1.0 Sodium 139 (136-145) mmol/L Potassium 3.8 (3.5-5.1) mmol/L Chloride 108 H (98-107) mmol/L Carbon Dioxide 19 L (21-32) mmol/L Anion Gap 12 H (3-11) BUN 8 (6-23) mg/dl Creatinine 0.68 (0.6-1.2) mg/dl Est Cr Clr Drug Dosing 112.2 ml/min eGFR 120.08 BUN/Creatinine Ratio 11.8 (10-20) Glucose 89 (70-99(Fasting)) mg/dl Calcium 9.1 (8.6-10.3) mg/dl Magnesium 1.8 (1.7-2.4) mg/dl Total Bilirubin 0.7 (0.2-1.0) mg/dl AST 10 L (13-39) U/L ALT 12 (7-52) U/L Alkaline Phosphatase 43 (34-104) U/L Troponin I High Sens < 2.3 (0-14) pg/ml Total Protein 7.3 (6.0-8.3) gm/dl Albumin 4.1 (3.4-5.0) gm/dl Globulin 3.2 (2.5-4.0) gm/dl Albumin/Globulin Ratio 1.3 (0.9-2) Urine Color Yellow Urine Appearance Clear (Clear) Urine pH 5.5 (4.5-7.5) Ur Specific [place] 1.010 (1.000-1.030) Urine Protein Negative (Negative) Urine Glucose (UA) Negative (Negative) Urine Ketones 3+ H (Negative) Urine Blood Negative (Negative) Urine Nitrite Negative (Negative) Urine Bilirubin Negative (Negative) Urine Urobilinogen Negative (Negative) Ur Leukocyte Esterase Negative (Negative) Urine Comment Administered Medications Discontinued Medications Acetaminophen (Acetaminophen 325 Mg Tab) 650 mg PO Q4H PRN PRN Reason: pain/fever Stop: 02/04/25 18:40 Last Admin: 01/07/25 07:42 Dose: 650 mg Documented By: Admin: 01/06/25 12:08 Dose: 650 mg Documented By: BANG Divalproex Sodium (Divalproex Delay Release 500 Mg Tab) 500 mg PO BID ANAI Stop: 02/05/25 08:59 Last Admin: 01/07/25 09:09 Dose: 500 mg Documented By: Admin: 01/06/25 23:05 Dose: 500 mg Documented By: julien Admin: 01/06/25 10:47 Dose: 500 mg Documented By: BANG Fexofenadine HCl (Fexofenadine Hcl 180 Mg Tab) 180 mg PO DAILY [facility] Stop: 02/05/25 08:59 Last Admin: 01/07/25 10:06 Dose: Not Given Documented By: Admin: 01/06/25 09:13 Dose: Not Given Documented By: BANG Hydroxyzine HCl (Hydroxyzine Hcl 25 Mg Tab) 25 mg PO Q8H PRN PRN Reason: anxiety Stop: 02/04/25 22:04 Last Admin: 01/06/25 02:11 Dose: 25 mg Documented By: DEB Sodium Chloride (Nss) 1,000 mls @ 999 mls/hr IV .Q1H1M ONE Stop: 01/05/25 15:51 Last Infusion: 01/05/25 16:03 Dose: Infused Documented By: Admin: 01/05/25 15:02 Dose: 999 mls/hr Documented By: DEEDEE Promethazine HCl (Phenergan) 12.5 mg in 50.5 mls @ 202 mls/hr IV NOW STA Stop: 01/05/25 15:05 Last Infusion: 01/05/25 15:15 Dose: Infused Documented By: Admin: 01/05/25 15:00 Dose: 202 mls/hr Documented By: DEEDEE Acetaminophen (Ofirmev) 1,000 mg in 100 mls @ 400 mls/hr IV NOW STA Stop: 01/05/25 15:05 Last Infusion: 01/05/25 15:17 Dose: Infused Documented By: Admin: 01/05/25 15:02 Dose: 400 mls/hr Documented By: DEEDEE Valproic Acid 1,000 mg/ (Dextrose) 60 mls @ 55 mls/hr IV NOW STA Stop: 01/05/25 17:03 Last Infusion: 01/05/25 17:42 Dose: Infused Documented By: Admin: 01/05/25 16:36 Dose: 55 mls/hr Documented By: LAVERNE Famotidine (Pepcid 20mg Iv Push) 20 mg in 5 mls @ 2.5 mls/min IV Q12H ANAI Stop: 02/04/25 20:59 Last Admin: 01/07/25 10:04 Dose: 2.5 mls/min Documented By: Admin: 01/06/25 23:05 Dose: 2.5 mls/min Documented By: julien Admin: 01/06/25 09:21 Dose: 2.5 mls/min Documented By: Admin: 01/05/25 21:16 Dose: 2.5 mls/min Documented By: gregg Acetaminophen (Ofirmev) 1,000 mg in 100 mls @ 400 mls/hr IV NOW STA Stop: 01/06/25 05:46 Last Infusion: 01/06/25 06:05 Dose: Infused Documented By: Admin: 01/06/25 05:47 Dose: 400 mls/hr Documented By: DEB Lactated Ringer's (Lr) 1,000 mls @ 999 mls/hr IV .Q1H1M ONE Stop: 01/06/25 08:13 Last Infusion: 01/06/25 10:50 Dose: Infused Documented By: Admin: 01/06/25 09:00 Dose: 999 mls/hr Documented By: BANG Lactated Ringer's (Lr) 1,000 mls @ 80 mls/hr IV .[id number] [facility] Stop: 01/07/25 03:44 Last Infusion: 01/07/25 05:03 Dose: Infused Documented By: julien Admin: 01/06/25 16:50 Dose: 80 mls/hr Documented By: YOUSIF Ioversol (Optiray 320 125ml) 119 ml IV ONCE ONE Stop: 01/05/25 18:58 Last Admin: 01/05/25 18:57 Dose: 119 ml Documented By: MARNI Ketorolac Tromethamine (Ketorolac Tromethamine 15 Mg/Ml Vial) 10 mg IV NOW ONE Stop: 01/05/25 16:03 Last Admin: 01/05/25 16:14 Dose: 10 mg Documented By: [place] Ketorolac Tromethamine (Ketorolac Tromethamine 15 Mg/Ml Vial) 10 mg IV Q6H PRN PRN Reason: Pain, second line Stop: 01/10/25 21:59 Last Admin: 01/07/25 09:17 Dose: 10 mg Documented By: Admin: 01/06/25 15:46 Dose: 10 mg Documented By: Admin: 01/06/25 09:21 Dose: 10 mg Documented By: BANG Multivitamins (Multivitamin Tab) 1 tab PO DAILY [facility] Stop: 02/05/25 08:59 Last Admin: 01/07/25 10:05 Dose: Not Given Documented By: Admin: 01/06/25 10:47 Dose: 1 tab Documented By: BANG Ondansetron HCl (Ondansetron Inj 2 Mg/Ml 2 Ml Vial) 4 mg IV Q4H PRN PRN Reason: Nausea, first line Stop: 02/04/25 18:40 Last Admin: 01/07/25 05:13 Dose: 4 mg Documented By: julien Admin: 01/06/25 11:33 Dose: 4 mg Documented By: Admin: 01/06/25 02:26 Dose: 4 mg Documented By: DEB Polyethylene Glycol (Polyethylene (Miralax) 17 Gm Pack) 17 gm PO DAILY [facility] Stop: 02/05/25 08:59 Last Admin: 01/07/25 09:10 Dose: Not Given Documented By: Admin: 01/06/25 09:13 Dose: Not Given Documented By: BANG Promethazine HCl (Promethazine Hcl Syrup 6.25 Mg/5 Ml) 12.5 mg PO Q6H PRN PRN Reason: Nausea And Vomiting Stop: 02/04/25 18:40 Last Admin: 01/07/25 10:04 Dose: 12.5 mg Documented By: BT Discharge Plan Visit Data Chief Complaint: Syncope Stated Complaint: Syncope, nausea, vomiting ED Provider: Viral Keyes ED Midlevel Provider: Meliza Roque Discharge Problem: Syncope, Neck pain, Headache, Fall, Nausea & vomiting Patient Disposition: Admitted As Inpatient Condition: Good Discharge Instructions Interventions: ED Discharge Assessment Last Done: 01/05/25 22:06 Discharge Problem: Syncope Qualifiers: Syncope type: unspecified Qualified Code(s): R55 - Syncope and collapse Headache Qualifiers: Headache type: unspecified Headache chronicity pattern: acute headache I ntractability: not intractable Qualified Code(s): R51.9 - Headache, unspecified Fall Qualifiers: Encounter type: initial encounter Qualified Code(s): W19.XXXA - Unspecified fall, initial encounter Nausea & vomiting Qualifiers: Vomiting type: unspecified Qualified Code(s): R11.2 - Nausea with vomiting, unspecified
[2025-01-05] MEDS: PROMETHAZINE 12.5 MG/50.5 ML BAG IV STA (15:00)
[2025-01-05] MEDS: SODIUM CHLORIDE 0.9% 1,000 ML IV ONE (15:02)
[2025-01-05] MEDS: ACETAMINOPHEN 1,000 MG/100 ML VIAL IV STA (15:02)
--- NOTE | 2025-01-05 15:22 | XRay Report ---
XR chest 1V portable CLINICAL HISTORY: syncope COMPARISON STUDY: 12/01/2024 FINDINGS: The cardiac and mediastinal contours are normal. There is no focal pulmonary consolidation. There are no pleural effusions. There is no pneumothorax. There is no failure. IMPRESSION: No active disease in the chest. ACT 112: Negative or not required by law. Electronically signed by: Johnny Stewart M.D. 01/05/2025 3:21 PM
--- NOTE | 2025-01-05 15:54 | CT Scan Report ---
CT SCAN OF THE CERVICAL SPINE CLINICAL HISTORY: Head and neck trauma. Pain. COMPARISON STUDY: TECHNIQUE: CT scan of the cervical spine is performed from the skull base to the upper thoracic spine . Images are reviewed in the axial, sagittal, and coronal planes. IV contrast was not administered fo r this examination. A dose lowering technique was utilized adhering to the principles of ALARA. CT DOSE: FINDINGS: The prevertebral soft tissues are normal. No fractures or traumatic subluxations are visualized. The lung apices are unremarkable in appearance. There is no pneumothorax. There is no pathologic cervical lymphadenopathy. No pathologic neck masses are visualized. There is n o evidence for a paraspinal hematoma. No spinal canal abnormalities are visualized given the limitations of a scanned. IMPRESSION: No acute cervical spine fracture or subluxation. ACT 112: Negative or not required by law. Electronically signed by: Johnny Stewart M.D. 01/05/2025 3:53 PM
--- NOTE | 2025-01-05 15:59 | CT Scan Report ---
CT SCAN OF THE BRAIN WITHOUT IV CONTRAST CLINICAL HISTORY: Syncope. Fall. Headache. COMPARISON STUDY: CT of the brain dated 01/04/2025. MRI of the brain dated 11/30/2024. TECHNIQUE: Unenhanced CT scan of the brain is performed from the vertex to the skull base. Images are reviewed in the axial, sagittal, and coronal planes. A dose lowering technique was utilized adherin g to the principles of ALARA. CT DOSE: 1053.87 mGy.cm FINDINGS: Brain parenchyma: The brain parenchyma is normal in appearance. There is no hemorrhage, mass effect, or evidence of acute territorial ischemia by CT criteria. Duran-white matter differentiation is preser clayton. No extra-axial fluid collection is seen. Ventricles, sulci, cisterns: Normal in configuration. Intracranial vasculature: The visualized intracranial vasculature at the skull base is normal in appe arance. Calvarium: Unremarkable. Sinuses and mastoids: The visualized paranasal sinuses are clear. The mastoid air cells are well pneu matized. Orbits: The bony orbits are grossly intact. IMPRESSION: No acute intracranial abnormality. ACT 112: Negative or not required by law. Electronically signed by: Pradip Diez M.D. 01/05/2025 3:58 PM
[2025-01-05 16:07] LABS: Albumin Level 4.1 gm/dl (3.4-5.0); Anion Gap 12 (3-11); Bilirubin,Total 0.7 mg/dl (0.2-1.0); Calcium 9.1 mg/dl (8.6-10.3); Carbon Dioxide 19 mmol/L (21-32); Chloride 108 mmol/L (98-107); Magnesium 1.8 mg/dl (1.7-2.4); Potassium 3.8 mmol/L (3.5-5.1); Sodium 139 mmol/L (136-145)
[2025-01-05 16:12] LABS: INR 1.2 (0.9-1.1); Partial Thromboplastin Time 27 Seconds (21-31); Prothrombin Time 12.3 Seconds (9.0-12.0)
[2025-01-05 16:13] LABS: Alanine Aminotransferase 12 U/L (7-52); Albumin Globulin Ratio 1.3 (0.9-2); Alkaline Phosphatase 43 U/L (34-104); Blood Urea Nitrogen 8 mg/dl (6-23); Creatinine Clr Calc Pharmacy 112.2 ml/min; Globulin 3.2 gm/dl (2.5-4.0); Glucose 89 mg/dl (70-99(Fasting)); Total Protein 7.3 gm/dl (6.0-8.3)
[2025-01-05] MEDS: KETOROLAC TROMETHAMINE 15 MG/ML VIAL IV ONE (16:14)
[2025-01-05] MEDS: VALPROATE SOD 1,000 MG in DEXTROSE 5% 50 ML IV STA (16:36)
[2025-01-05 16:37] LABS: Appearance Urine Clear (Clear); Glucose Urine UA Negative (Negative)
--- NOTE | 2025-01-05 17:36 | Electrocardiogram Report ---
Test Reason : Blood Pressure : */* mmHG Vent. Rate : 74 BPM Atrial Rate : 74 BPM P-R Int : 144 ms QRS Dur : 84 ms QT Int : 362 ms P-R-T Axes : 44 80 26 degrees QTcB Int : 401 ms Normal sinus rhythm Normal ECG When compared with ECG of 04-Jan-2025 18:35, No significant change was found Confirmed by Jorge Luis Dubon ([id number]) on 01/05/2025 5:35:34 PM Referred By: Confirmed By: Jorge Luis Dubon
--- NOTE | 2025-01-05 17:50 | History & Physical Report ---
Date of Service January 05, 2025 Assessment & Plan (1) Headache: Plan: 29-year-old female with a history of nonenhancing left frontal lobe lesion stable from with differential including cortical dysplasia versus low- grade glioma who presents to the ER with recurrent nausea/vomiting and episode of vasovagal syncope while vomiting. Due to ongoing headache with nausea/vomiting she was recommended for admission and LP on consultation with neurology. Headache, nausea, vomiting Discussed with neurology at time of admission. DDx includes migraine, asepctic meningitis, hemicrania continua, CVT, dissection, pseudotumor the patient was improved with treatment for migrainous. low suspicion for bacterial meningitis, she does not have severe nuchal rigidity or fever and no leukocytosis. Relatively stable for several days despite ongoing symptoms. Agree with further workup including CTA to rule out dissection, venography to look for any evidence of central thrombosis, and LP. Will be to be performed under IR guidance with opening pressure CThead: No acute intracranial abnormality. Parenchyma normal in appearance, jackson-white matter differentiation preserved, ventricles/sulci/cisterns normal. CTC-spine: No acute spine fracture or subluxation Chest x-ray: No acute finding Last MRIbrain 11/2024 with no arterial narrowing/occlusion CTAhead and neck pending followed by CT venogram pending IR guided LP pending Valproic acid 1 g given by ER. Pt w/ significant benefit from this. 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 Differential includes cortical dysplasia versus low-grade glioma Strokelike symptoms on admission Risk of gastritis With recent NSAID use Will continue Pepcid twice daily for gastritis DVT prophylaxis: SCDs. Chemical prophylaxis deferred pending LP Diet: Regular, n.p.o. at midnight pending IR procedure CODE STATUS: Full code (2) Migraine: (3) Cervicalgia: (4) Abnormal finding on MRI of brain: History of Present Illness Primary Care Provider: DO Naila Bird Maldonado is a 29yo F who presents for her 3rd ER visit in the last month followed by Neuro for nonenhancing brain lesion. MRI 11/2024 showed a unchanged left frontal lobe nonenhancing lesion which could represent cortical dysplasia versus low-grade glioma unchanged compared to 2014 Per ER signout: Severe nausea/vomiting with headache and some right neck discomfort. patient was seen in the ER and treated symptomatically for nausea/vomiting/headache and discharged home. She re-presents to the ER with similar symptoms. Case was discussed with Dr. Pride --> recommended 1g depakote. CThead did not show any acute findings. No evidence of hemorrhage, mass effect, acute ischemia and normal ventricles/cisterns with normal size. LP was recommended with measurement of opening pressure while in discussion with neurology. Recommendation was discussed with ER PA, this had been reviewed with her and her attending and as patient was not febrile and appearing acutely meningeal was not felt to be emergent and was recommended to be performed following admission. BNP with mild increased anion gap metabolic acidosis with BSG 89, creatinine 0.68. Potassium normal. No leukocytosis, afebrile Per patient Nausea/Vomiting for 5 days. [place] terrible with a R headache from crown down to the posterior occiput for ~5 days. Tylenol and the other medicine ER gave seems to help the headache a lot, tatianna it down to ~1/10. Promethazine helped the nausea which has resolved 'for the first time in a long time. She was on steroids 1 month ago, made her eye pressure much worse and has avoided since. Was prescribed for an ear infection which resolved. She feels she is always congested when she has migraines which tends to set it off. Headache does seem to correlate with sinus congestion which improved with indomethacin, but stomach upset has been limiting her ability to take this. Normally doesn't get as nauseas with migraines as she has been. Nausea was worse PRIOR to starting the indomethacin. Saw Dr. Pride on Thursday. Medical History: Reviewed Medications: Reviewed Surgical History: Reviewed Family history: Reviewed Allergies: Reviewed Social History: No tobacco/ETOH Code Status: Full Allergies Allergy/AdvReac Type Severity Reaction Status Date / Time cefdinir Allergy Severe Hives Verified 01/04/25 20:28 Penicillins Allergy Severe Hives Verified 01/04/25 20:28 metoclopramide AdvReac Intermediate compulsive Verified 01/04/25 20:28 shakes prochlorperazine AdvReac Intermediate akathesia Verified 01/04/25 20:28 [From Compazine] - required IV benadryl to resolve Home Medications Medication Instructions Recorded Confirmed Type multivitamin 1 tab PO DAILY 12/19/21 01/05/25 History Saccharomyces boulardii 250 mg 250 mg PO QAM 01/22/24 01/05/25 History capsule (Daily Probiotic (S. boulardii)) hydroxyzine pamoate 25 mg capsule 25 mg PO Q8H PRN anxiety #30 caps 03/14/24 01/05/25 Rx (Vistaril) valacyclovir 1 gram tablet 2,000 mg (2 x 1 gram) PO BID PRN 10/11/24 01/05/25 Rx (Valtrex) cold sores #14 tabs fexofenadine 180 mg tablet 180 mg PO DAILY 12/01/24 01/05/25 History fluticasone propionate 50 1 spray intranasal Q12H #16 grams 12/03/24 01/05/25 Rx mcg/actuation nasal spray,suspension (Flonase Allergy Relief) meclizine 25 mg tablet 25 mg PO TID PRN vertigo #30 tabs 12/03/24 01/05/25 Rx fexofenadine-pseudoephedrine ER 1 tab PO QAM 12/05/24 01/05/25 History 180 mg-240 mg tablet,ext.release 24 hr (Joanne-D 24 Hour) cyclobenzaprine 5 mg tablet 5 mg PO TID PRN muscle spasm #90 12/23/24 01/05/25 Rx tabs indomethacin 50 mg capsule 50 mg PO BID #60 caps 01/03/25 01/05/25 Rx ondansetron 8 mg disintegrating 8 mg PO BID PRN nausea and 01/03/25 01/05/25 Rx tablet vomiting #60 tabs promethazine 25 mg rectal 25 mg [place] Q6H PRN sedation #12 ea 01/03/25 01/05/25 Rx suppository rizatriptan 10 mg disintegrating 10 mg PO Q2H PRN migraine headache 01/03/25 01/05/25 Rx tablet #12 tabs Past Med/Surg History Problem List (Updated 01/04/25 @ 22:31 by Al Appiah DO) Headache (Acute) Neck pain without injury (Acute) Migraine (Acute) Trigeminal autonomic cephalgias Migraine, intractable Classic migraine with aura Headache (Acute) Aural vertigo, unspecified ear Myofascial neck pain Cervicalgia Acute vestibular syndrome Right ear pain (Acute) Lesion of frontal lobe of brain Left Abnormal finding on MRI of brain Depression Cerebellar tonsillar ectopia Allergic rhinitis Anxiety Vitamin D deficiency Medical History Lymphedema Surgical History S/P endometrial ablation (02/2023) Status post tubal ligation 10/2021 Status post section 10/2021 S/P tube myringotomy (~05/2015) w/ removal in May 2015 H/O wisdom tooth extraction Family History Father Family history of alcohol abuse Environmental allergies Drug abuse Hypertension Mother , August 2024 Anxiety Environmental allergies Family history of depression Obesity Thyroid trouble Endometrial cancer Sister Anxiety Family history of depression Endometriosis Obesity Grandfather (Paternal) Cardiac disorder Hypertension Myocardial infarction Grandmother (Maternal) Cancer Larynx cancer Breast cancer Grandfather (Maternal) Prostate cancer Myocardial infarction Denies family history of Ovarian cancer Bleeding disorder Lung cancer Colorectal cancer Social History Smoking Status: Never smoker Second Hand Exposure: No; Do You Dip or Chew Tobacco: No; Hx Alcohol Use: No Hx Substance Use: No Preferred Language: Kosovan Communication Ability: Effective Visual Impairment: No Limitations Hearing Ability: Normal Diamond Cutter Required: No Beliefs That Will Affect Care: None marital status: Current Living Situation: Spouse current occupational status: employed How many Children do You have: 1 Feels Safe at Home: Yes Childhood Exposure to Second-Hand Smoke: No Diet: regular Diet Comment: regular caffeine: Yes (1 cup day) during the past year weight has: other Dental Care, Regularly: Yes Physical Activity Frequency: Daily Seatbelt Use: always Sunscreen Use: Yes Assistive Devices: Contacts and Glasses Physical Exam Physical Exam: General: A&Ox3. NAD. Cooperative. HEENT: Atraumatic, normocephalic. Vision/hearing intact. PERLAA. +R cervical neck tenderness. Pulm: CTAB A&P. -wheezes, -rales, -rhonchi. Symmetrical chest rise. No increased work of breathing. No respiratory distress. Cardiac: RRR, -mrg. Radial pulses intact and symmetrical. Abdominal:MIld epigastric TTP, otherwise Nontender, nondistended, soft. BS present. +fullness on suprapubic palpation. CRANIAL NERVES: II: Pupils equal and reactive, no relative afferent pupillary defect, no VF cuts III, IV, : EOM intact, no gaze preference or deviation, no nystagmus. V: normal sensation in V1, V2, and V3 segments bilaterally VII: no asymmetry, no nasolabial fold flattening VIII: normal hearing to speech IX, X: normal palatal elevation, no uvular deviation XI: 5/5 head turn and 5/5 shoulder shrug bilaterally XII: midline tongue protrusion MOTOR: RUE: 5/5 Shoulder internal rotation, external rotation, flexion, extension, a bduction, adduction 5/5 Elbow flexion/extension, wrist flexi on/extension 5/5 tip mender strength, finger flexion/extens ion, interosseus LUE: 5/5 Shoulder internal rotation, external rotation, flexion, extension, abduction, adduction 5/5 Elbow flexion/extension, wrist flexi on/extension 5/5 tip mender strength, finger flexion/extens ion, interosseus RLE: 5/5 to hip flexion, knee flexion/extensi on, ankle dorsiflexion/plantarflexion LLE: 5/5 to hip flexion, knee flexion/extensi on, ankle dorsiflexion/plantarflexion SENSORY: Normal to touch in upper and lower extremities without deficit or asymmetry Results & Data Results & Data Vital Signs (Past 12 Hours) Vital Signs Temp Pulse Pulse Resp BP BP Pulse Ox 01/05/25 16:00 72 18 129/83 97 01/05/25 14:33 79 01/05/25 14:26 36.8 C 77 18 130/83 99 O2 Del Method 01/05/25 16:00 01/05/25 14:33 01/05/25 14:26 Room Air PG Care Time/CCT Total # of Minutes Spent Total Time Spent with Patient: Total time spent is greater than 50% in coordination of care (as documented) at patient's floor/unit and/or counseling patient: Coding Level of Care Code 08848 INT INP/OBS CARE 3/75MIN Diagnoses Headache R51.9 Migraine G43.909 Cervicalgia M54.2 Abnormal finding on MRI of brain R90.89
[2025-01-05 18:17] LABS: Hematocrit (blood only) 36.8 % (37.0-47.0); Hemoglobin 12.3 g/dl (12.0-16.0); Immature Granulocytes # (auto) 0.02 K/uL (0.01-0.20); Immature Granulocytes % (auto) 0.3 %; Mean Corpuscular Hemoglobin 29.7 pg (25.0-34.0); Mean Corpuscular Volume 88.9 fL (80.0-100.0); Platelet Count 239 K/uL (130-400); RDW Standard Deviation 39.3 fL (36.4-46.3); Red Blood Count 4.14 M/uL (4.20-5.40); White Blood Count 7.85 K/ul (4.8-10.8)
[2025-01-05] MEDS: OPTIRAY 320 125ml IV ONE (18:57)
--- NOTE | 2025-01-05 19:14 | CT Scan Report ---
CT angiogram of the neck CT angiogram of the brain with contrast Provided History: Evaluate for cerebral venous thrombosis Comparison: None Technique: HEAD CT: Using multidetector thin collimation helical acquisition technique, axial, coronal and sagittal CT images from the skull base to the vertex were obtained without intravenous contrast. HEAD and NECK CTA: During rapid bolus intravenous injection of nonionic contrast material, axial images were obtained using thin collimation multidetector helical technique from the base of the neck through the of vertex of the head. This CT angiogram data was reconstructed at thin intervals with mild overlap. 3D reconstructions were obtained. The axial source images, multiplanar reformations, 3D reconstructions in both maximum intensity projection display and volume rendered models were reviewed. Dose reduction techniques were achieved by using automatic exposure control and/or adjustment of mA and/or kV according to patient size and/or use of iterative reconstruction technique. Findings: Head CTA demonstrates no aneurysm or stenosis of the major intracranial arteries. Neck CTA demonstrates no stenosis of the major cervical arteries. The origins of the great vessels from the aortic arch are patent. No mass is noted within the visualized portions of the cervical soft tissues or lung apices. Impression: 1. Head CTA demonstrates no aneurysm or stenosis of the major intracranial arteries, 2. Neck CTA demonstrates no stenosis of the major cervical arteries. Electronically signed by Mat Roque 01-05-2025 7:14 PM
--- NOTE | 2025-01-05 19:15 | CT Scan Report ---
CT head venogram with contrast History: Evaluate for cerebral venous thrombosis Comparison: None Technique: Using multidetector thin collimation helical acquisition technique, axial, coronal and sagittal CT images from the skull base to the vertex were obtained with intravenous contrast. Dose reduction techniques were achieved by using automatic exposure control and/or adjustment of mA and/or kV according to patient size and/or use of iterative reconstruction technique. Findings: No intracranial hemorrhage, mass-effect, or midline shift. The ventricles are proportionate to the cerebral sulci. The jackson to white matter differentiation of the cerebral hemispheres is preserved. The basal cisterns are patent. The visualized paranasal sinuses are clear. Mastoid air cells are clear. The major intracranial venous sinuses are patent. No evidence for thrombosis. Grossly symmetric appearance of the cavernous sinuses. Impression: No acute intracranial pathology. Normal CTV. Electronically signed by Mat Roque 01-05-2025 7:14 PM
[2025-01-05] MEDS: FAMOTIDINE 20MG IV PUSH 20 MG/5 ML SYR IV SCH (21:16)
[2025-01-05] MEDS ORDERED: CYCLOBENZAPRINE HCL 5 MG TAB PO PRN (22:05)
[2025-01-05] MEDS ORDERED: MECLIZINE HCL 25 MG TAB PO PRN (22:05)
[2025-01-06] MEDS: ONDANSETRON INJ 2 MG/ML 2 ML VIAL IV PRN (02:26)
[2025-01-06] MEDS: ACETAMINOPHEN 1,000 MG/100 ML VIAL IV STA (05:47)
[2025-01-06 06:06] LABS: Hematocrit (blood only) 34.9 % (37.0-47.0); Hemoglobin 12.0 g/dl (12.0-16.0); Immature Granulocytes # (auto) 0.02 K/uL (0.01-0.20); Immature Granulocytes % (auto) 0.4 %; Mean Corpuscular Hemoglobin 30.8 pg (25.0-34.0); Mean Corpuscular Volume 89.5 fL (80.0-100.0); Platelet Count 216 K/uL (130-400); RDW Standard Deviation 39.3 fL (36.4-46.3); Red Blood Count 3.90 M/uL (4.20-5.40); White Blood Count 5.50 K/ul (4.8-10.8)
[2025-01-06 06:20] LABS: Anion Gap 7.0 (3-11); Blood Urea Nitrogen 11.0 mg/dl (6-23); Calcium 8.9 mg/dl (8.6-10.3); Carbon Dioxide 24.0 mmol/L (21-32); Chloride 109.0 mmol/L (98-107); Creatinine Clr Calc Pharmacy 100.4 ml/min; Glucose 76.0 mg/dl (70-99(Fasting)); Potassium 3.7 mmol/L (3.5-5.1); Sodium 140.0 mmol/L (136-145)
[2025-01-06] MEDS: LACTATED RINGER'S 1,000 ML IV ONE (09:00)
[2025-01-06] MEDS: FEXOFENADINE HCL 180 MG TAB PO SCH (09:13)
[2025-01-06] MEDS: POLYETHYLENE (MIRALAX) 17 GM PACK PO SCH (09:13)
[2025-01-06] MEDS: KETOROLAC TROMETHAMINE 15 MG/ML VIAL IV PRN (09:21)
[2025-01-06] MEDS: DIVALPROEX DELAY RELEASE 500 MG TAB PO SCH (09:22)
[2025-01-06] MEDS: MULTIVITAMIN TAB PO SCH (09:22)
[2025-01-06 09:35] LABS: CSF Count Tube # 3; CSF Xanthrochromic No xanthochromia; Red Blood Cell CSF Manual 0 (0); White Blood Cell CSF Manual 1 (0-5)
[2025-01-06] MEDS: ACETAMINOPHEN 325 MG TAB PO PRN (12:08)
--- NOTE | 2025-01-06 12:18 | History & Physical Report ---
Date of Service January 06, 2025 Assessment & Plan (1) Headache: Plan: 29-year-old female with a history of nonenhancing left frontal lobe lesion stable from with differential including cortical dysplasia versus low- grade glioma who presents to the ER with recurrent nausea/vomiting and episode of vasovagal syncope while vomiting. Due to ongoing headache with nausea/vomiting she was recommended for admission and LP on consultation with neurology. Headache, nausea, vomiting Discussed with neurology at time of admission. DDx includes migraine, asepctic meningitis, hemicrania continua, CVT, dissection, pseudotumor the patient was improved with treatment for migrainous. low suspicion for bacterial meningitis, she does not have severe nuchal rigidity or fever and no leukocytosis. Relatively stable for several days despite ongoing symptoms. Agree with further workup including CTA to rule out dissection, venography to look for any evidence of central thrombosis, and LP. Will be to be performed under IR guidance with opening pressure CThead: No acute intracranial abnormality. Parenchyma normal in appearance, jackson-white matter differentiation preserved, ventricles/sulci/cisterns normal. CTC-spine: No acute spine fracture or subluxation Chest x-ray: No acute finding Last MRIbrain 11/2024 with no arterial narrowing/occlusion CTAhead and neck pending followed by CT venogram pending IR guided LP pending Valproic acid 1 g given by ER. Pt w/ significant benefit from this. 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 Differential includes cortical dysplasia versus low-grade glioma Strokelike symptoms on admission Risk of gastritis With recent NSAID use Will continue Pepcid twice daily for gastritis DVT prophylaxis: SCDs. Chemical prophylaxis deferred pending LP Diet: Regular, n.p.o. at midnight pending IR procedure CODE STATUS: Full code (2) Migraine: (3) Cervicalgia: (4) Abnormal finding on MRI of brain: Admission and Anticipated Discharge Date Admission Date: January 05, 2025 History of Present Illness Primary Care Provider: Jessie Morales DO Allergies Allergy/AdvReac Type Severity Reaction Status Date / Time cefdinir Allergy Severe Hives Verified 01/04/25 20:28 Penicillins Allergy Severe Hives Verified 01/04/25 20:28 metoclopramide AdvReac Intermediate compulsive Verified 01/04/25 20:28 shakes prochlorperazine AdvReac Intermediate akathesia Verified 01/04/25 20:28 [From Compazine] - required IV benadryl to resolve Home Medications Medication Instructions Recorded Confirmed Type multivitamin 1 tab PO DAILY 12/19/21 01/05/25 History Saccharomyces boulardii 250 mg 250 mg PO QAM 01/22/24 01/05/25 History capsule (Daily Probiotic (S. boulardii)) hydroxyzine pamoate 25 mg capsule 25 mg PO Q8H PRN anxiety #30 caps 03/14/24 01/05/25 Rx (Vistaril) valacyclovir 1 gram tablet 2,000 mg (2 x 1 gram) PO BID PRN 10/11/24 01/05/25 Rx (Valtrex) cold sores #14 tabs fexofenadine 180 mg tablet 180 mg PO DAILY 12/01/24 01/05/25 History fluticasone propionate 50 1 spray intranasal Q12H #16 grams 12/03/24 01/05/25 Rx mcg/actuation nasal spray,suspension (Flonase Allergy Relief) meclizine 25 mg tablet 25 mg PO TID PRN vertigo #30 tabs 12/03/24 01/05/25 Rx fexofenadine-pseudoephedrine ER 1 tab PO QAM 12/05/24 01/05/25 History 180 mg-240 mg tablet,ext.release 24 hr (Joanne-D 24 Hour) cyclobenzaprine 5 mg tablet 5 mg PO TID PRN muscle spasm #90 12/23/24 01/05/25 Rx tabs indomethacin 50 mg capsule 50 mg PO BID #60 caps 01/03/25 01/05/25 Rx ondansetron 8 mg disintegrating 8 mg PO BID PRN nausea and 01/03/25 01/05/25 Rx tablet vomiting #60 tabs promethazine 25 mg rectal 25 mg [place] Q6H PRN sedation #12 ea 01/03/25 01/05/25 Rx suppository rizatriptan 10 mg disintegrating 10 mg PO Q2H PRN migraine headache 01/03/25 01/05/25 Rx tablet #12 tabs Past Med/Surg History Problem List (Updated 01/04/25 @ 22:31 by Al Appiah DO) Headache (Acute) Neck pain without injury (Acute) Migraine (Acute) Trigeminal autonomic cephalgias Migraine, intractable Classic migraine with aura Headache (Acute) Aural vertigo, unspecified ear Myofascial neck pain Cervicalgia Acute vestibular syndrome Right ear pain (Acute) Lesion of frontal lobe of brain Left Abnormal finding on MRI of brain Depression Cerebellar tonsillar ectopia Allergic rhinitis Anxiety Vitamin D deficiency Medical History Lymphedema Surgical History S/P endometrial ablation (02/2023) Status post tubal ligation 10/2021 Status post section 10/2021 S/P tube myringotomy (~05/2015) w/ removal in May 2015 H/O wisdom tooth extraction Family History Father Family history of alcohol abuse Environmental allergies Drug abuse Hypertension Mother , August 2024 Anxiety Environmental allergies Family history of depression Obesity Thyroid trouble Endometrial cancer Sister Anxiety Family history of depression Endometriosis Obesity Grandfather (Paternal) Cardiac disorder Hypertension Myocardial infarction Grandmother (Maternal) Cancer Larynx cancer Breast cancer Grandfather (Maternal) Prostate cancer Myocardial infarction Denies family history of Ovarian cancer Bleeding disorder Lung cancer Colorectal cancer Social History Smoking Status: Never smoker Second Hand Exposure: No; Do You Dip or Chew Tobacco: No; Hx Alcohol Use: No Hx Substance Use: No Preferred Language: Azeri Communication Ability: Effective Visual Impairment: No Limitations Hearing Ability: Normal Spine Supervisor Required: No Beliefs That Will Affect Care: None marital status: Current Living Situation: Spouse and Family current occupational status: employed How many Children do You have: 1 Feels Safe at Home: Yes Safety Concerns: Feels Safe At This Time Childhood Exposure to Second-Hand Smoke: No Diet: regular Diet Comment: regular caffeine: Yes (1 cup day) during the past year weight has: other Dental Care, Regularly: Yes Physical Activity Frequency: Daily Seatbelt Use: always Sunscreen Use: Yes Assistive Devices: Glasses Results & Data Results & Data Vital Signs (Past 12 Hours) Vital Signs Pulse Resp BP Pulse Ox O2 Del Method 01/06/25 10:30 68 17 116/81 97 Room Air 01/06/25 10:16 60 16 111/72 100 Room Air 01/06/25 09:46 61 17 114/84 97 Room Air 01/06/25 09:31 65 23 112/73 98 Room Air 01/06/25 09:16 74 19 117/75 99 Room Air 01/06/25 09:10 75 18 121/77 98 Room Air 01/06/25 07:00 70 16 97 Room Air 01/06/25 05:00 75 14 96/55 L 96 Room Air 01/06/25 04:00 63 15 98/69 L 96 Room Air 01/06/25 00:51 61 14 112/65 97 Room Air Code Status & VTE Plan VTE Prophylaxis Plan VTE Prophylaxis will be ordered: Yes PG Care Time/CCT Total # of Minutes Spent Total Time Spent with Patient: Total time spent is greater than 50% in coordination of care (as documented) at patient's floor/unit and/or counseling patient: Coding Diagnoses Headache R51.9 Migraine G43.909 Cervicalgia M54.2 Abnormal finding on MRI of brain R90.89
--- NOTE | 2025-01-06 12:39 | Discharge Summary ---
Discharge Summary Date of Service January 06, 2025 Principal Dx & Hospital Course #1 = Principal Diagnosis (1) Headache: 29-year-old female with a history of nonenhancing left frontal lobe lesion stable from with differential including cortical dysplasia versus low- grade glioma who presents to the ER with recurrent nausea/vomiting and episode of vasovagal syncope while vomiting. Due to ongoing headache with nausea/vomiting she was recommended for admission and LP on consultation with neurology. Infectious workup was negative, LP did not show any acute abnormalities, and CT series did not show any acute intracranial abnormalities, vascular abnormalities(including dissection or central venous thrombosis). She clinically improved with the addition of Depakote and symptomatic treatment and was subsequently discharged outpatient follow-up. To do as outpatient: 1. Continue Depakote 500 mg twice daily for 1 week, strict avoidance of sexual activity and potential teratogenic effects was discussed. She does have a history of tubal ligation. Discussed that Depakote is still teratogenic and while generally effective there are still low rates of failure of tubal coloration. She acknowledges this risk. 2. Follow-up with neurology within 1 week 3. Routine PCP follow-up Headache, nausea, vomiting Discussed with neurology at time of admission. DDx includes migraine, asepctic meningitis, hemicrania continua, CVT, dissection, pseudotumor the patient was improved with treatment for migrainous. low suspicion for bacterial meningitis, she does not have severe nuchal rigidity or fever and no leukocytosis. Relatively stable for several days despite ongoing symptoms. Agree with further workup including CTA to rule out dissection, venography to look for any evidence of central thrombosis, and LP. Will be to be performed under IR guidance with opening pressure CThead: No acute intracranial abnormality. Parenchyma normal in appearance, jackson-white matter differentiation preserved, ventricles/sulci/cisterns normal. CTC-spine: No acute spine fracture or subluxation Chest x-ray: No acute finding Last MRIbrain 11/2024 with no arterial narrowing/occlusion CTAhead and neck Without acute findings, no evidence of dissection CT venogram without evidence of CVT IR guided LP pending Valproic acid 1 g given by ER. Pt w/ significant benefit from this. Depakote 500 mg ER twice daily continued starting 01/06 Continue symptomatic management with Tylenol, Toradol, and nausea control with Zofran first-line promethazine second-line LP with normal opening pressure of 17, CSF clear, there is not elevated protein. Glucose normal. No abnormalities suggestive of aseptic or bacterial meningitis. Send out studies pending although lower suspicion given progression and normal protein. She reports that she felt much better with the medications he relieved in the ER, and feels her headache has improved to the best point it has been in quite some time. She did receive valproic acid which she thinks worked well and she had not received before Discussed with neurology prior to discharge. Given good clinical improvement, symptomatic resolution, and normal studies felt is appropriate for outpatient follow-up. Will continue Depakote 500 mg p.o. twice daily for 1 week to help optimize migraine control. Ultimately due to potential teratogenic effects if on this long-term would need to be on consistent reliable contraceptive option. She reports a history of tubal ligation, counseled on low but nonzero chance of failure. test here was negative. May have good success using this short-term to obtain good control and then transition off of this, she will have outpatient follow-up for this decision with neurology Will continue outpatient medications including her indomethacin. 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 Differential includes cortical dysplasia versus low-grade glioma. 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 MRI 11/2024 showed a unchanged left frontal lobe nonenhancing lesion which could represent cortical dysplasia versus low-grade glioma unchanged compared to 2014 Per ER signout: Severe nausea/vomiting with headache and some right neck discomfort. patient was seen in the ER and treated symptomatically for nausea/vomiting/headache and discharged home. She re-presents to the ER with similar symptoms. Case was discussed with Dr. Pride --> recommended 1g depakote. CThead did not show any acute findings. No evidence of hemorrhage, mass effect, acute ischemia and normal ventricles/cisterns with normal size. LP was recommended with measurement of opening pressure while in discussion with neurology. Recommendation was discussed with ER PA, this had been reviewed with her and her attending and as patient was not febrile and appearing acutely meningeal was not felt to be emergent and was recommended to be performed following admission. BNP with mild increased anion gap metabolic acidosis with BSG 89, creatinine 0.68. Potassium normal. No leukocytosis, afebrile Per patient Nausea/Vomiting for 5 days. Media terrible with a R headache from crown down to the posterior occiput for ~5 days. Tylenol and the other medicine ER gave seems to help the headache a lot, tatianna it down to ~1/10. Promethazine helped the nausea which has resolved 'for the first time in a long time. She was on steroids 1 month ago, made her eye pressure much worse and has avoided since. Was prescribed for an ear infection which resolved. She feels she is always congested when she has migraines which tends to set it off. Headache does seem to correlate with sinus congestion which improved with indomethacin, but stomach upset has been limiting her ability to take this. Normally doesn't get as nauseas with migraines as she has been. Nausea was worse PRIOR to starting the indomethacin. Saw Dr. Pride on Thursday. Medical History: Reviewed Medications: Reviewed Surgical History: Reviewed Family history: Reviewed Allergies: Reviewed Social History: No tobacco/ETOH Code Status: Full Discharge Exam General: A&Ox3. NAD. Cooperative. HEENT: Atraumatic, normocephalic. Vision/hearing intact. PERLAA. Mild right cervical neck tenderness, improved from prior Pulm: CTAB A&P. -wheezes, -rales, -rhonchi. Symmetrical chest rise. No increased work of breathing. No respiratory distress. Cardiac: RRR, -mrg. Radial pulses intact and symmetrical. Abdominal:MIld epigastric TTP, otherwise Nontender, nondistended, soft. BS pres ent. Extremities: Moves all extremities equally. 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 You are treated with symptomatic care and clinically improved, you significantly improved with the addition of valproic acid. You have been continued on a related medicine called Depakote. Depakote is a teratogenic medication, meaning it can cause major defects when taken during especially during the first trimester. While on this agent short-term do not engage in sexual activity. If taken long-term this must be taken with reliable contraception due to the high risk of causing defects. Sling regarding this medication was provided during admission. You reported a history of tubal ligation which has a low, but nonzero chance of failure You been prescribed Depakote 500 mg extended release by mouth twice daily for 1 week. You should have follow-up with neurology to see if this needs to be continued for longer, or can be discontinued with symptomatic improvement at that time. Your initial lumbar puncture studies were normal and did not show any evidence of meningitis or increased intracranial pressure. [facility] send out serologies which will not be available for around a week or 2. Please follow-up with neurology or PCP for the final results of the send out studies. Very rarely you can experience a prolonged headache after lumbar puncture. You did not have any headache after lumbar puncture and your pre-existing headache had actually improved. If you do experience a recurrent headache please call your neurologist for recommendations, or return to the ER if severe or you are very concerned. A CT series did not show any acute intracranial abnormality or mass. There were no abnormalities of the blood vessels in your head and neck, and specifically no dissections were seen on CTA. There were no clots or thrombosis seen in the veins of your brain on a CT study called venographic. Your case was reviewed with neurology during admission. While taking indomethacin please take [id number] famotidine 10 mg twice daily to help protect your stomach. Indomethacin is an NSAID and can cause stomach irritation/upset/nausea, famotidine will help protect your stomach from this If you develop any new or worsening symptoms including fever, chills, sweats, chest pain, chest pressure, difficulty breathing, uncontrolled nausea/vomiting, rash, wheezing, passing out or nearly passing out, bleeding, black/bloody bowel movements, or other new or concerning symptoms please call your primary care physician, or call 911 for re-evaluation in the emergency department if you are very concerned. Pending Studies at Discharge: Yes Stand-Alone Forms: My [facility] [employer], Smoking Cessation Medications and DC Order Prescriptions: New divalproex 500 mg Tablet,Delayed Release (Dr/Ec) 500 mg PO BID Qty: 14 1RF Continued hydroxyzine pamoate [Vistaril] 25 mg capsule 25 mg PO Q8H PRN (Reason: anxiety) Qty: 30 5RF Rx Instructions: PER PT "USUALLY TAKE EVERY HS FOR SLEEP". valacyclovir [Valtrex] 1 gram tablet 2,000 mg PO BID PRN (Reason: cold sores) Qty: 14 0RF Rx Instructions: Start DIDIER at onset of symptoms. Repeat course PRN multivitamin Tablet 1 tab PO DAILY Patient Comments: 12/24- otc unable to verify cyclobenzaprine 5 mg tablet 5 mg PO TID PRN (Reason: muscle spasm) Qty: 90 1RF Patient Comments: 12/24- no fill history unable to verify Saccharomyces boulardii [Daily Probiotic (S. boulardii)] 250 mg capsule 250 mg PO QAM Patient Comments: 12/24- otc unable to verify ondansetron 8 mg tablet,disintegrating 8 mg PO BID PRN (Reason: nausea and vomiting) Qty: 60 1RF rizatriptan 10 mg tablet,disintegrating 10 mg PO Q2H PRN (Reason: migraine headache) Qty: 12 2RF Rx Instructions: do not exceed 3 doses per 24 hrs promethazine 25 mg suppository 25 mg [place] Q6H PRN (Reason: sedation) Qty: 12 0RF indomethacin 50 mg capsule 50 mg PO BID Qty: 60 0RF Rx Instructions: administer with food or milk Nurtec ODT 75 mg tablet,disintegrating 75 mg PO DIRECTED MDD 75 MG/24 HOURS--2-3 X WK MAX. PRN (Reason: Migraine Headache) 0RF fexofenadine-pseudoephedrine [Joanne-D 24 Hour] 180-240 mg tablet extended release 24 hr 1 tab PO QAM Patient Comments: 12/24- otc unable to verify fexofenadine 180 mg Tablet 180 mg PO DAILY Patient Comments: 12/24- otc unable to verify meclizine 25 mg Tablet 25 mg PO TID PRN (Reason: vertigo) Qty: 30 0RF fluticasone propionate [Flonase Allergy Relief] 50 mcg/actuation spray,suspension 1 spray intranasal Q12H Qty: 16 0RF Patient Comments: 12/24- otc unable to verify Rx Instructions: administer into each nostril Discharge Orders: Discharge Order (Routine); Ordered 01/06/25 Ordered By: Roosevelt Callahan Admission Data Admit Date/Time: 01/05/25 18:41 Attending Provider: Roosevelt Callahan Admit Provider: Roosevelt Callahan Primary Care Provider: Jessie Morales Other Providers: Roosevelt Callahan; Jeremy Perales Hospital Stay Data Consultations 01/05/25 17:03 ED Decision to Admit Stat 01/06/25 09:00 Consult Neurology Routine Diagnostic Imagining Performed 01/05/25 14:50 CT cervical spine wo con Stat CT head/brain wo con Stat 01/05/25 18:22 CTA head w con [CT angio head w con] Stat CTA neck with con [CT angio neck with con] Stat 01/05/25 18:38 CT head venogram w con Stat 01/06/25 18:27 IR lumbar puncture diagnostic Routine Discharge Instructions Given to Patient (Per Discharging Provider) You are seen in the hospital for headache/nausea/vomiting. You are treated with symptomatic care and clinically improved, you significantly improved with the addition of valproic acid. You have been continued on a related medicine called Depakote. Depakote is a teratogenic medication, meaning it can cause major defects when taken during especially during the first trimester. While on this agent short-term do not engage in sexual activity. If taken long-term this must be taken with reliable contraception due to the high risk of causing defects. Sling regarding this medication was provided during admission. You reported a history of tubal ligation which has a low, but nonzero chance of failure You been prescribed Depakote 500 mg extended release by mouth twice daily for 1 week. You should have follow-up with neurology to see if this needs to be continued for longer, or can be discontinued with symptomatic improvement at that time. Your initial lumbar puncture studies were normal and did not show any evidence of meningitis or increased intracranial pressure. [facility] send out serologies which will not be available for around a week or 2. Please follow-up with neurology or PCP for the final results of the send out studies. Very rarely you can experience a prolonged headache after lumbar puncture. You did not have any headache after lumbar puncture and your pre-existing headache had actually improved. If you do experience a recurrent headache please call your neurologist for recommendations, or return to the ER if severe or you are very concerned. A CT series did not show any acute intracranial abnormality or mass. There were no abnormalities of the blood vessels in your head and neck, and specifically no dissections were seen on CTA. There were no clots or thrombosis seen in the veins of your brain on a CT study called venographic. Your case was reviewed with neurology during admission. While taking indomethacin please take [id number] famotidine 10 mg twice daily to help protect your stomach. Indomethacin is an NSAID and can cause stomach irritation/upset/nausea, famotidine will help protect your stomach from this If you develop any new or worsening symptoms including fever, chills, sweats, chest pain, chest pressure, difficulty breathing, uncontrolled nausea/vomiting, rash, wheezing, passing out or nearly passing out, bleeding, black/bloody bowel movements, or other new or concerning symptoms please call your primary care physician, or call 911 for re-evaluation in the emergency department if you are very concerned. Total Time Total Time Spent Total Time Spent (In Minutes): Time spend day of discharge 35 minutes including direct patient care, doc umentation, review of labs and images, and coordination of care. Coding Level of Care Code 53896 INP/OBS DISCH >30 MIN Diagnoses Headache R51.9 Migraine G43.909 Cervicalgia M54.2 Abnormal finding on MRI of brain R90.89
--- NOTE | 2025-01-06 13:21 | Fluoroscopy Report ---
LUMBAR PUNCTURE CLINICAL HISTORY: Headache PROCEDURE: Procedure and risks were explained. Informed consent was obtained. A final timeout was com pleted. The patient was placed prone on the fluoroscopic exam table. The lower lumbar region was prep ped and draped in sterile fashion. 1% lidocaine was utilized for skin anesthesia. Utilizing fluoroscopic guidance, a 22-gauge Sprotte spinal needle was advanced into the intrathecal s pace at the L3-L4 disc space level. Fluoroscopic spot images were obtained. Opening pressure was bella ured at 17 cm H2O. Approximately 8 mL of clear CSF was removed and sent to the lab for analysis. The needle was removed and Band-Aid applied. The patient tolerated the procedure well. Vital signs will b e monitored postprocedure. Fluoroscopy time 5 seconds. Study dosed is 3.39 mGy. IMPRESSION: Lumbar puncture as above. Performed, dictated, and signed by Ramone White PA-C; to be co-signed by Dr. Jhonny Oropeza. Electronically signed by: Jhonny Oropeza M.D. 01/06/2025 1:30 PM
--- NOTE | 2025-01-06 15:05 | Hospitalist Progress Note ---
Date of Service January 06, 2025 Assessment & Plan (1) Headache: Plan: 29-year-old female with a history of nonenhancing left frontal lobe lesion stable from with differential including cortical dysplasia versus low- grade glioma who presents to the ER with recurrent nausea/vomiting and episode of vasovagal syncope while vomiting. Due to ongoing headache with nausea/vomiting she was recommended for admission and LP on consultation with neurology. Infectious workup was negative, LP did not show any acute abnormalities, and CT series did not show any acute intracranial abnormalities, vascular abnormalities(including dissection or central venous thrombosis). She clinically improved with the addition of Depakote and symptomatic treatment and was subsequently discharged outpatient follow-up. Postdural puncture headache Patient initially scheduled for discharge with improvement of headache however later in morning and through afternoon has had development of a diffuse headache across the front of her head with a very different quality from her prior headaches/migraines in which improves laying flat consistent with postdural puncture headache. Was observed and given caffeine and fluids however both due to concern for her recurrent readmissions from her normal headaches, and that her current headache is slightly different and did not initially resolve does not feel comfortable with return home this evening which is reasonable. She will be monitored for post LP headache. Will continue IV FM at maintenance, and continue to drink coffee twice daily, continue Tylenol and will be continued on her other headache medications. If persistent/worsening can discuss blood patch with anesthesia. Discharge plan as copied below To do as outpatient: 1. Continue Depakote 500 mg twice daily for 1 week, strict avoidance of sexual activity and potential teratogenic effects was discussed. She does have a history of tubal ligation. Discussed that Depakote is still teratogenic and while generally effective there are still low rates of failure of tubal coloration. She acknowledges this risk. 2. Follow-up with neurology within 1 week 3. Routine PCP follow-up Headache, nausea, vomiting Discussed with neurology at time of admission. DDx includes migraine, asepctic meningitis, hemicrania continua, CVT, dissection, pseudotumor the patient was improved with treatment for migrainous. low suspicion for bacterial meningitis, she does not have severe nuchal rigidity or fever and no leukocytosis. Relatively stable for several days despite ongoing symptoms. Agree with further workup including CTA to rule out dissection, venography to look for any evidence of central thrombosis, and LP. Will be to be performed under IR guidance with opening pressure CThead: No acute intracranial abnormality. Parenchyma normal in appearance, jackson-white matter differentiation preserved, ventricles/sulci/cisterns normal. CTC-spine: No acute spine fracture or subluxation Chest x-ray: No acute finding Last [facility]brain 11/2024 with no arterial narrowing/occlusion CTAhead and neck Without acute findings, no evidence of dissection CT venogram without evidence of CVT Valproic acid 1 g given by ER. Pt w/ significant benefit from this. Depakote 500 mg ER twice daily continued starting 01/06 Continue symptomatic management with Tylenol, Toradol, and nausea control with Zofran first-line promethazine second-line LP with normal opening pressure of 17, CSF clear, there is not elevated protein. Glucose normal. No abnormalities suggestive of aseptic or bacterial meningitis. Send out studies pending although lower suspicion given progression and normal protein. She reports that she felt much better with the medications he relieved in the ER, and feels her headache has improved to the best point it has been in quite some time. She did receive valproic acid which she thinks worked well and she had not received before Discussed with neurology prior to discharge. Given good clinical improvement, symptomatic resolution, and normal studies felt is appropriate for outpatient follow-up. Will continue Depakote 500 mg p.o. twice daily for 1 week to help optimize migraine control. Ultimately due to potential teratogenic effects if on this long-term would need to be on consistent reliable contraceptive option. She reports a history of tubal ligation, counseled on low but nonzero chance of failure. test here was negative. May have good success using this short-term to obtain good control and then transition off of this, she will have outpatient follow-up for this decision with neurology Will continue outpatient medications including her indomethacin. 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 Differential includes cortical dysplasia versus low-grade glioma. 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 Pending discharge has had development of a headache different in quality from her prior migraines in which improves when laying flat. Suspect post LP headache. Was given coffee and fluids, has not had adequate resolution of patient uncomfortable with return home. Will continue to monitor for LP headache overnight. Discharge held Physical Exam Physical Exam: General: A&Ox3. NAD. Cooperative. HEENT: Atraumatic, normocephalic. Vision/hearing intact. PERLAA. Mild right cervical neck tenderness, improved from prior Pulm: CTAB A&P. -wheezes, -rales, -rhonchi. Symmetrical chest rise. No increased work of breathing. No respiratory distress. Cardiac: RRR, -mrg. Radial pulses intact and symmetrical. Abdominal:MIld epigastric TTP, otherwise Nontender, nondistended, soft. BS present. Extremities: Moves all extremities equally. Crusher strength, hip flexion, ankle dorsiflexion/plantarflexion intact with full symmetrical strength Results & Data Results & Data Vital Signs (Past 12 Hours) Vital Signs Pulse Resp BP Pulse Ox O2 Del Method 01/06/25 14:45 72 18 141/92 H 98 Room Air 01/06/25 10:30 68 17 116/81 97 Room Air 01/06/25 10:16 60 16 111/72 100 Room Air 01/06/25 09:46 61 17 114/84 97 Room Air 01/06/25 09:31 65 23 112/73 98 Room Air 01/06/25 09:16 74 19 117/75 99 Room Air 01/06/25 09:10 75 18 121/77 98 Room Air 01/06/25 07:00 70 16 97 Room Air 01/06/25 05:00 75 14 96/55 L 96 Room Air 01/06/25 04:00 63 15 98/69 L 96 Room Air PG Care Time/CCT Total # of Minutes Spent Total Time Spent with Patient: Total time spent is greater than 50% in coordination of care (as documented) at patient's floor/unit and/or counseling patient: Coding Level of Care Code 09241 SUB INP/OBS CARE 3/50MIN Diagnoses Headache R51.9 Migraine G43.909 Cervicalgia M54.2 Abnormal finding on MRI of brain R90.89
[2025-01-06] MEDS: LACTATED RINGER'S 1,000 ML IV SCH (16:50)
[2025-01-06 23:05] VITALS: O2SAT 97
[2025-01-07 06:53] LABS: Hematocrit (blood only) 34.8 % (37.0-47.0); Hemoglobin 11.7 g/dl (12.0-16.0); Immature Granulocytes # (auto) 0.02 K/uL (0.01-0.20); Immature Granulocytes % (auto) 0.4 %; Mean Corpuscular Hemoglobin 29.8 pg (25.0-34.0); Mean Corpuscular Volume 88.5 fL (80.0-100.0); Platelet Count 205 K/uL (130-400); RDW Standard Deviation 38.9 fL (36.4-46.3); Red Blood Count 3.93 M/uL (4.20-5.40); White Blood Count 4.45 K/ul (4.8-10.8)
[2025-01-07 07:12] LABS: Anion Gap 6.0 (3-11); Blood Urea Nitrogen 9.0 mg/dl (6-23); Calcium 8.8 mg/dl (8.6-10.3); Carbon Dioxide 27.0 mmol/L (21-32); Chloride 108.0 mmol/L (98-107); Creatinine Clr Calc Pharmacy 95.4 ml/min; Glucose 81.0 mg/dl (70-99(Fasting)); Potassium 3.6 mmol/L (3.5-5.1); Sodium 141.0 mmol/L (136-145)
[2025-01-07 07:34] VITALS: BP 125/80; PULSE 87; RESP 17; TEMP 98.2
--- NOTE | 2025-01-07 08:56 | Discharge Summary ---
Discharge Summary Date of Service January 07, 2025 Principal Dx & Hospital Course #1 = Principal Diagnosis (1) Headache: 29-year-old female with a history of nonenhancing left frontal lobe lesion stable from with differential including cortical dysplasia versus low- grade glioma who presents to the ER with recurrent nausea/vomiting and episode of vasovagal syncope while vomiting. Due to ongoing headache with nausea/vomiting she was recommended for admission and LP on consultation with neurology. Infectious workup was negative, LP did not show any acute abnormalities, and CT series did not show any acute intracranial abnormalities, vascular abnormalities(including dissection or central venous thrombosis). She clinically improved with the addition of Depakote and symptomatic treatment and was subsequently discharged outpatient follow-up. To do as outpatient: 1. Continue Depakote 500 mg twice daily for 1 week, strict avoidance of sexual activity and potential teratogenic effects was discussed. She does have a history of tubal ligation. Discussed that Depakote is still teratogenic and while generally effective there are still low rates of failure of tubal coloration. She acknowledges this risk. 2. Follow-up with neurology within 1 week 3. Routine PCP follow-up 4. Has a triggering component from right increased suboccipital tenderness/tone. This responded very well to OMT/suboccipital release during admission. Recommended to follow-up periodically with DO for OMT as this may reduce her headache triggers. Headache, nausea, vomiting Discussed with neurology at time of admission. DDx includes migraine, asepctic meningitis, hemicrania continua, CVT, dissection, pseudotumor the patient was improved with treatment for migrainous. low suspicion for bacterial meningitis, she does not have severe nuchal rigidity or fever and no leukocytosis. Relatively stable for several days despite ongoing symptoms. Agree with further workup including CTA to rule out dissection, venography to look for any evidence of central thrombosis, and LP. Will be to be performed under IR guidance with opening pressure CThead: No acute intracranial abnormality. Parenchyma normal in appearance, jackson-white matter differentiation preserved, ventricles/sulci/cisterns normal. CTC-spine: No acute spine fracture or subluxation Chest x-ray: No acute finding Last MRIbrain 11/2024 with no arterial narrowing/occlusion CTAhead and neck Without acute findings, no evidence of dissection CT venogram without evidence of CVT Valproic acid 1 g given by ER. Pt w/ significant benefit from this. Depakote 500 mg ER twice daily continued starting 01/06 Continue symptomatic management with Tylenol, Toradol, and nausea control with Zofran first-line promethazine second-line LP with normal opening pressure of 17, CSF clear, there is not elevated protein. Glucose normal. No abnormalities suggestive of aseptic or bacterial meningitis. Send out studies pending although lower suspicion given progression and normal protein. She reports that she felt much better with the medications he relieved in the ER, and feels her headache has improved to the best point it has been in quite some time. She did receive valproic acid which she thinks worked well and she had not received before Discussed with neurology prior to discharge. Given good clinical improvement, symptomatic resolution, and normal studies felt is appropriate for outpatient follow-up. Will continue Depakote 500 mg p.o. twice daily for 1 week to help optimize migraine control. Ultimately due to potential teratogenic effects if on this long-term would need to be on consistent reliable contraceptive option. She reports a history of tubal ligation, counseled on low but nonzero chance of failure. test here was negative. May have good success using this short-term to obtain good control and then transition off of this, she will have outpatient follow-up for this decision with neurology Will continue outpatient medications including her indomethacin. Pepcid was recommended over PPI for gastric protection while on NSAIDs due to the potential for PPI to contribute to headaches Postdural puncture headache She is experience a classic postdural puncture headache around 12-16 hours with some diffuse headache very different in quality from her prior headaches which resolves when laying flat and was worse when sitting up. This resolved by the following morning. She did also have right occipital tenderness/increased muscle tone separate from this which has been a migraine trigger to her previously. This responded well to OMT/suboccipital release and she was pain-free following this. 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 Differential includes cortical dysplasia versus low-grade glioma. 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 MRI 11/2024 showed a unchanged left frontal lobe nonenhancing lesion which could represent cortical dysplasia versus low-grade glioma unchanged compared to 2014 Per ER signout: Severe nausea/vomiting with headache and some right neck discomfort. patient was seen in the ER and treated symptomatically for nausea/vomiting/headache and discharged home. She re-presents to the ER with similar symptoms. Case was discussed with Dr. Pride --> recommended 1g depakote. CThead did not show any acute findings. No evidence of hemorrhage, mass effect, acute ischemia and normal ventricles/cisterns with normal size. LP was recommended with measurement of opening pressure while in discussion with neurology. Recommendation was discussed with ER PA, this had been reviewed with her and her attending and as patient was not febrile and appearing acutely meningeal was not felt to be emergent and was recommended to be performed following admission. BNP with mild increased anion gap metabolic acidosis with BSG 89, creatinine 0.68. Potassium normal. No leukocytosis, afebrile Per patient Nausea/Vomiting for 5 days. [place] terrible with a R headache from crown down to the posterior occiput for ~5 days. Tylenol and the other medicine ER gave seems to help the headache a lot, tatianna it down to ~1/10. Promethazine helped the nausea which has resolved 'for the first time in a long time. She was on steroids 1 month ago, made her eye pressure much worse and has avoided since. Was prescribed for an ear infection which resolved. She feels she is always congested when she has migraines which tends to set it off. Headache does seem to correlate with sinus congestion which improved with indomethacin, but stomach upset has been limiting her ability to take this. Normally doesn't get as nauseas with migraines as she has been. Nausea was worse PRIOR to starting the indomethacin. Saw Dr. Pride on Thursday. Medical History: Reviewed Medications: Reviewed Surgical History: Reviewed Family history: Reviewed Allergies: Reviewed Social History: No tobacco/ETOH Code Status: Full Discharge Exam General: A&Ox3. NAD. Cooperative. HEENT: Atraumatic, normocephalic. Vision/hearing intact. PERLAA. R occipital tenderness, improved following OMT Pulm: CTAB A&P. -wheezes, -rales, -rhonchi. Symmetrical chest rise. No increased work of breathing. No respiratory distress. Cardiac: RRR, -mrg. Radial pulses intact and symmetrical. Abdominal:Nontender, nondistended, soft. BS present. Extremities: Moves all extremities equally. 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 You are treated with symptomatic care and clinically improved, you significantly improved with the addition of valproic acid. You have been continued on a related medicine called Depakote. Depakote is a teratogenic medication, meaning it can cause major defects when taken during especially during the first trimester. While on this agent short-term do not engage in sexual activity. If taken long-term this must be taken with reliable contraception due to the high risk of causing defects. Sling regarding this medication was provided during admission. You reported a history of tubal ligation which has a low, but nonzero chance of failure You been prescribed Depakote 500 mg extended release by mouth twice daily for 1 week. You should have follow-up with neurology to see if this needs to be continued for longer, or can be discontinued with symptomatic improvement at that time. Your initial lumbar puncture studies were normal and did not show any evidence of meningitis or increased intracranial pressure. [facility] send out serologies which will not be available for around a week or 2. Please follow-up with neurology or PCP for the final results of the send out studies. Very rarely you can experience a prolonged headache after lumbar puncture. You did not have any headache after lumbar puncture and your pre-existing headache had actually improved. If you do experience a recurrent headache please call your neur ologist for recommendations, or return to the ER if severe or you are very concerned. A CT series did not show any acute intracranial abnormality or mass. There were no abnormalities of the blood vessels in your head and neck, and specifically no dissections were seen on CTA. There were no clots or thrombosis seen in the veins of your brain on a CT study called venographic. Your case was reviewed with neurology during admission. While taking indomethacin please take [id number] famotidine 10 mg twice daily to help protect your stomach. Indomethacin is an NSAID and can cause stomach irritation/upset/nausea, famotidine will help protect your stomach from this Separate from your other headache you did have increased right occipital (skull base) tenderness and muscular tone. For some patients this can be a trigger of migraines. You underwent suboccipital release, and OMT techniques to help relieve tension in the muscle area with symptomatic benefit. Is recommended to follow-up with an osteopath for ongoing OMT as this may help relieve neck strain and tension which can in turn trigger migraines. Dr. Maxwell is a [facility] provider who performs OMT, a referral can be placed for this by your primary care provider. If you develop any new or worsening symptoms including fever, chills, sweats, chest pain, chest pressure, difficulty breathing, uncontrolled nausea/vomiting, rash, wheezing, passing out or nearly passing out, bleeding, black/bloody bowel movements, or other new or concerning symptoms please call your primary care physician, or call 911 for re-evaluation in the emergency department if you are very concerned. Pending Studies at Discharge: Yes Stand-Alone Forms: My [facility] Orange Leap, Smoking Cessation Medications and DC Order Prescriptions: New divalproex 500 mg Tablet,Delayed Release (Dr/Ec) 500 mg PO BID Qty: 14 1RF Continued hydroxyzine pamoate [Vistaril] 25 mg capsule 25 mg PO Q8H PRN (Reason: anxiety) Qty: 30 5RF Rx Instructions: PER PT "USUALLY TAKE EVERY HS FOR SLEEP". valacyclovir [Valtrex] 1 gram tablet 2,000 mg PO BID PRN (Reason: cold sores) Qty: 14 0RF Rx Instructions: Start DIDIER at onset of symptoms. Repeat course PRN multivitamin Tablet 1 tab PO DAILY Patient Comments: 12/24- otc unable to verify cyclobenzaprine 5 mg tablet 5 mg PO TID PRN (Reason: muscle spasm) Qty: 90 1RF Patient Comments: 12/24- no fill history unable to verify Saccharomyces boulardii [Daily Probiotic (S. boulardii)] 250 mg capsule 250 mg PO QAM Patient Comments: 12/24- otc unable to verify ondansetron 8 mg tablet,disintegrating 8 mg PO BID PRN (Reason: nausea and vomiting) Qty: 60 1RF rizatriptan 10 mg tablet,disintegrating 10 mg PO Q2H PRN (Reason: migraine headache) Qty: 12 2RF Rx Instructions: do not exceed 3 doses per 24 hrs promethazine 25 mg suppository 25 mg [place] Q6H PRN (Reason: sedation) Qty: 12 0RF indomethacin 50 mg capsule 50 mg PO BID Qty: 60 0RF Rx Instructions: administer with food or milk Nurtec ODT 75 mg tablet,disintegrating 75 mg PO DIRECTED MDD 75 MG/24 HOURS--2-3 X WK MAX. PRN (Reason: Migraine Headache) 0RF fexofenadine-pseudoephedrine [Joanne-D 24 Hour] 180-240 mg tablet extended release 24 hr 1 tab PO QAM Patient Comments: 12/24- otc unable to verify fexofenadine 180 mg Tablet 180 mg PO DAILY Patient Comments: 12/24- otc unable to verify meclizine 25 mg Tablet 25 mg PO TID PRN (Reason: vertigo) Qty: 30 0RF fluticasone propionate [Flonase Allergy Relief] 50 mcg/actuation spray,suspension 1 spray intranasal Q12H Qty: 16 0RF Patient Comments: 12/24- otc unable to verify Rx Instructions: administer into each nostril Discharge Orders: Discharge Order (Routine); Ordered 01/07/25 Ordered By: Roosevelt Avila/Other Patient Handouts: Understanding Headache Pain Admission Data Admit Date/Time: 01/05/25 18:41 Attending Provider: Roosevelt Callahan Admit Provider: Roosevelt Callahan Primary Care Provider: Jessie Morales Other Providers: Roosevelt Callahan Other Interventions: Discharge Summary Assessment (RN) Last Done: 01/07/25 10:55 Hospital Stay Data Consultations 01/05/25 17:03 ED Decision to Admit Stat Diagnostic Imagining Performed 01/05/25 14:50 CT cervical spine wo con Stat CT head/brain wo con Stat 01/05/25 18:22 CTA head w con [CT angio head w con] Stat CTA neck with con [CT angio neck with con] Stat 01/05/25 18:38 CT head venogram w con Stat 01/06/25 18:27 IR lumbar puncture diagnostic Routine Pending Results Patient Have Any Pending Studies at Discharge: Yes Discharge Instructions Given to Patient (Per Discharging Provider) You are seen in the hospital for headache/nausea/vomiting. You are treated with symptomatic care and clinically improved, you significantly improved with the addition of valproic acid. You have been continued on a related medicine called Depakote. Depakote is a teratogenic medication, meaning it can cause major defects when taken during especially during the first trimester. While on this agent short-term do not engage in sexual activity. If taken long-term this must be taken with reliable contraception due to the high risk of causing defects. Sling regarding this medication was provided during admission. You reported a history of tubal ligation which has a low, but nonzero chance of failure You been prescribed Depakote 500 mg extended release by mouth twice daily for 1 week. You should have follow-up with neurology to see if this needs to be continued for longer, or can be discontinued with symptomatic improvement at that time. Your initial lumbar puncture studies were normal and did not show any evidence of meningitis or increased intracranial pressure. [facility] send out serologies which will not be available for around a week or 2. Please follow-up with neurology or PCP for the final results of the send out studies. Very rarely you can experience a prolonged headache after lumbar puncture. You did not have any headache after lumbar puncture and your pre-existing headache had actually improved. If you do experience a recurrent headache please call your neurologist for recommendations, or return to the ER if severe or you are very concerned. A CT series did not show any acute intracranial abnormality or mass. There were no abnormalities of the blood vessels in your head and neck, and specifically no dissections were seen on CTA. There were no clots or thrombosis seen in the veins of your brain on a CT study called venographic. Your case was reviewed with neurology during admission. While taking indomethacin please take [id number] famotidine 10 mg twice daily to help protect your stomach. Indomethacin is an NSAID and can cause stomach irritation/upset/nausea, famotidine will help protect your stomach from this Separate from your other headache you did have increased right occipital (skull base) tenderness and muscular tone. For some patients this can be a trigger of migraines. You underwent suboccipital release, and OMT techniques to help relieve tension in the muscle area with symptomatic benefit. Is recommended to follow-up with an osteopath for ongoing OMT as this may help relieve neck strain and tension which can in turn trigger migraines. Dr. Maxwell is a [facility] provider who performs OMT, a referral can be placed for this by your primary care provider. If you develop any new or worsening symptoms including fever, chills, sweats, c hest pain, chest pressure, difficulty breathing, uncontrolled nausea/vomiting, rash, wheezing, passing out or nearly passing out, bleeding, black/bloody bowel movements, or other new or concerning symptoms please call your primary care physician, or call 911 for re-evaluation in the emergency department if you are very concerned. Total Time Total Time Spent Total Time Spent (In Minutes): 50 Coding Level of Care Code 38477 INP/OBS DISCH >30 MIN Diagnoses Headache R51.9 Migraine G43.909 Cervicalgia M54.2 Abnormal finding on MRI of brain R90.89
[2025-01-07] MEDS: PROMETHAZINE HCL SYRUP 6.25 MG/5 ML PO PRN (10:04)
[2025-01-10 05:57] LABS: West Nile Virus, PCR Source CSF; West Nile Virus, PCR, CSF NOT DETECTED (NOT DETECTED)
== END 2025-01-07 11:30 | disposition home or self-care (01) ==
LOC: ED 14:04 → EDINP 14:04 → 3N 22:06